=== PATIENT | male | born 1980 | race Two or more races ===

== ENCOUNTER 2022-03-21 09:51 | Outpatient (REF) | payer OTHER, SELFPAY ==
[2022-03-21 10:35] LABS: Hematocrit 34.2 % (42.0-52.0); Hemoglobin 11.6 g/dl (14.0-18.0); Mean Corpuscular HGB Conc 33.9 g/dl (31.0-36.0); Mean Corpuscular Hemoglobin 35.2 pg (27.0-33.0); Mean Corpuscular Volume 103.6 fL (80.0-98.0); Mean Platelet Volume 12.7 fL (9.4-12.4); Platelet Count 418 X10*3/uL (160-400); Red Cell Distribution Width 13.5 % (11.0-16.0); White Blood Count 14.1 X10*3/uL (4.8-10.8)
[2022-03-21 10:44] LABS: INTERNATIONAL NORM RATIO 1.6 (0.9-1.1); Prothrombin Time 18.2 SEC (10.0-13.1)
[2022-03-21 11:16] LABS: Alanine Aminotransferase 58 U/L (0-40); Albumin Level 3.1 g/dL (3.5-5.0); Alkaline Phosphatase 408 U/L (39-117); Aspartate Amino Transferase 173 U/L (5-37); Bilirubin Direct 7.8 mg/dL (0.0-0.5); Bilirubin Total 11.7 mg/dL (0.0-1.0); Total Protein 6.8 g/dL (6.5-8.0)
[2022-03-21 11:20] LABS: HBS Num1 15.71 mIU/mL (0-7.99); HBc Num1 0.09 S/CO (0.00-0.79); HBsAGNum1 0.19 S/CO (0.00-0.99); Hepatitis B Core Antibody Nonreactive (Nonreactive); Hepatitis B Surface Antigen Negative (Negative); ~HepC Num1 0.19 S/CO (0.00-0.79); ~Hepatitis B Surface Antibody REACTIVE (Nonreactive); ~Hepatitis C Antibody Nonreactive (Nonreactive)
== END 2022-03-21 09:52 | disposition home or self-care (01) ==
LOC: HO.LAB 09:51
PROVIDERS: PCP Physician Assistant; Visit Provider Physician Assistant
DX: Z11.3 Encounter for screening for infections with a predominantly sexual mode of transmission (principal); K70.30 Alcoholic cirrhosis of liver without ascites
CPT/HCPCS: 36415; 80076; 85027; 85610; 86704; 86706; 86803; 87340

== ENCOUNTER 2022-04-04 10:47 | Outpatient (REF) | payer OTHER, SELFPAY ==
[2022-04-04 11:19] LABS: Hematocrit 34.5 % (42.0-52.0); Hemoglobin 11.8 g/dl (14.0-18.0); Mean Corpuscular HGB Conc 34.2 g/dl (31.0-36.0); Mean Corpuscular Hemoglobin 35.3 pg (27.0-33.0); Mean Corpuscular Volume 103.3 fL (80.0-98.0); Mean Platelet Volume 11.1 fL (9.4-12.4); Platelet Count 224 X10*3/uL (160-400); Red Blood Count 3.34 X10*6/uL (4.60-5.80); Red Cell Distribution Width 12.6 % (11.0-16.0); White Blood Count 10.6 X10*3/uL (4.8-10.8)
[2022-04-04 11:26] LABS: Ammonia 58 umol/L (13-55)
[2022-04-04 11:30] LABS: INTERNATIONAL NORM RATIO 1.5 (0.9-1.1)
[2022-04-04 11:44] LABS: Alanine Aminotransferase 35 U/L (0-40); Alkaline Phosphatase 418 U/L (39-117); Aspartate Amino Transferase 112 U/L (5-37); Bilirubin Total 5.6 mg/dL (0.0-1.0); Blood Urea Nitrogen 3 mg/dL (9-16); Calcium 8.4 mg/dL (8.4-10.2); Estimated Glomerular Filt Rate > 60; Glucose Fasting 135 mg/dL (60-99); Total Protein 6.5 g/dL (6.5-8.0)
[2022-04-04 12:14] LABS: Anion Gap 21 (12-20); Carbon Dioxide 30 mmol/L (22-29); Chloride 91 mmol/L (96-108); Potassium 2.7 mmol/L (3.3-5.1); Sodium 139 mmol/L (135-145)
== END 2022-04-04 10:48 | disposition home or self-care (01) ==
LOC: HO.LAB 10:47
PROVIDERS: PCP Physician Assistant; Visit Provider Physician Assistant
DX: K70.30 Alcoholic cirrhosis of liver without ascites (principal); E78.00 Pure hypercholesterolemia, unspecified; R11.0 Nausea; R63.4 Abnormal weight loss
CPT/HCPCS: 36415; 80053; 82140; 85027; 85610

== ENCOUNTER 2023-02-23 09:22 | Outpatient (AMB) | payer OTHER, SELFPAY ==
--- NOTE | 2023-02-23 09:26 | MHC.PC.OV ---
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: Present Accompanied by: Mother Allergies No Known Allergies Allergy (Verified 02/23/23 09:28) Tobacco use date assessed: 02/23/23 Dental Screening Dental Screen Date: 02/23/23 Did you have a dental visit in the last 12 months?: Yes Did you have a dental problem in the last 6 months where you did not have access to dental care?: No Was dental information given to patient?: Patient has dentist HPI HPI Comments History of Present Illness Details 42-year-old male past medical history significant for insomnia, generalized anxiety disorder, GERD, gout, hypertension and alcoholic cirrhosis of the liver. Patient of Gustavo Garcia presents today for swollen groin x 2 weeks patient reports he was recently admitted to [facility] and had an indwelling catheter during admission. Patient reports since discharge from hospital and catheter removal he has had penile scrotal swelling. Patient denies severe pain just states it is uncomfortable because it is so swollen. Past history liver cirrhosis and ascites. amonia level at [facility] 175 will repeat.Patient currently on spironolactone 25 mg daily. Patient denies any dysuria, penile discharge, blood in the urine or difficulty voiding. CMP and urinalysis ordered. [facility] Surgical History No pertinent past surgical history Family History Mother No problems noted. Father No problems noted. 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 1. Little interest or pleasure in doing things: not at all 2. Feeling down, depressed, or hopeless: not at all 3. Trouble falling or staying asleep, or sleeping too much: not at all 4. Feeling tired or having little energy: not at all 5. Poor appetite or overeating: not at all 6. Feeling bad about yourself - or that you are a failure or have let yourself or your family down: not at all 7. Trouble concentrating on things, such as reading the newspaper or watching television: not at all 8. Moving or speaking so slowly that other people could have noticed. Or the opposite - being so fidgety or restless that you have been moving around a lot more than usual: not at all 9. Thoughts that you would be better off or of hurting yourself in some way: not at all Total score: 0 Depression Screening Interpretation: Negative Source: Developed by Drs. Carlos Bell, Irene Parisi, Norm Osorio and colleagues, with an educational marco antonio from [employer]. Thrive Questionnaire Date Thrive assessed: 02/23/23 I am a: Patient What is your living situation today?: I have a steady place to live Within the past 12 months, did the food you bought not last and you didn't have the money to get more?: Never true Within the past 12 months, did you worry whether your food would run out before you got money to buy more?: Never true Do you have trouble paying for medicines?: No Do you have trouble getting transportation to medical appointments?: No Do you have trouble paying your heating and electricity bill?: No Do you have trouble taking care of your child, family member or friend?: No Do you have trouble with day-to-day activities such as bathing, preparing meals, shopping, managing finances, etc.?: No Are you currently unemployed and looking for a job?: No Are you interested in more education?: No Currently or been in a relationship where the following occur: no concerns reported AUDIT C Alcohol Use Questionnaire (AUDIT-C) 1. How often do you have a drink containing alcohol?: 2-3 times a week 2. How many drinks containing alcohol do you have on a typical day when you are drinking?: 1 or 2 Total Score: 3 YARA-7 AMB Questionnaire YARA-7 Date YARA - 7 assessed: 02/23/23 Feeling nervous, anxious, or on edge: 1 = Several days Not being able to stop or control worryin = Several days Worrying too much about different things: 1 = Several days Trouble relaxin = Not at all Being so restless that it is hard to sit still: 0 = Not at all Becoming easily annoyed or irritable: 0 = Not at all Feeling afraid as if something awful might happen: 0 = Not at all Total YARA-7 score (0-4 normal; 5-9 mild; 10-14 moderate; 15-21 severe): 3 Source: Developed by Drs. Carlos Bell, Irene Parisi, Norm Osorio and colleagues, with an educational marco antonio from [employer]. Review of Systems Const Denies chills, Denies fatigue, Denies fever(s) and Denies poor appetite Eyes Denies no additional complaints ENT Reports Normal hearing present Card Denies chest pain, Denies syncope, Denies rapid heart rate and Denies dyspnea Resp Denies cough and Denies dyspnea GI Denies change in stool character, Denies constipation, Denies diarrhea, Denies nausea and Denies vomiting Denies dysuria, Denies urinary frequency, Denies urinary urgency and Reports other (penile and scrotal swelling ) Neuro Reports Normal hearing present, Denies confusion and Denies syncope Psych Denies confusion Endo Denies fatigue Physical exam (Primary Care) Vital Signs: Last Vital Signs Pulse 94 02/23/23 09:28 BP 100/72 02/23/23 09:28 Pulse Ox 100 02/23/23 09:28 Oxygen Delivery Method Room Air 02/23/23 09:28 BMI result Body Mass Index 28.5 Tobacco/Smoking Status: Tobacco use Status Tobacco use date assessed 02/23/23 02/23/23 09:32 Patient Tobacco Use Status Former Tobacco user 02/23/23 09:40 e-Cigarette/Vaping Use Never Used 02/23/23 09:38 PHQ-9: PHQ-9 Score PHQ-9: Total score 0 02/23/23 11:53 Depression Screening Interpretation: Negative Thrive Assessment: Date of Thrive Assessment Date Thrive assessed 02/23/23 02/23/23 09:32 Currently or been in a relationship where the following occur: no concerns reported Const General: No confusion Orientation/consciousness: No confusion HENMT Head: Yes normocephalic and Yes atraumatic Eyes Conjunctivae: conjunctivae normal Chest Chest palpation & inspection: normal inspection of the chest Resp Effort & Inspection: normal respiratory effort Auscultation: clear to auscultation bilaterally, no crackles, no rhonchi and no wheezes Cardio Rate: regular rate Rhythm: regular rhythm Heart sounds: S1 normal heart sound present and S2 normal heart sound present GI Inspection: Yes normal to inspection Male General Exam: No ecchymosis, Yes edema diffuse (large amount of diffuse penile and scrotal swelling ) and No erythema Meatus: no meatla discharge, No Blood at meatus present and No Erythema at meatus Neuro General: No confusion Cranial nerves: Yes Normal hearing present Extrem General: No edema Assessment and Plan Assessment & Plan (1) Alcoholic cirrhosis of liver: Code(s): K70.30 - Alcoholic cirrhosis of liver without ascites Qualifiers: Ascites presence: without ascites Qualified Code(s): K70.30 - Alcoholic cirrhosis of liver without ascites Plan: Ammonia repeated and decreased to 118 from 175. (2) Penile swelling: Code(s): N48.89 - Other specified disorders of penis Plan: Given patient experiencing diffuse scrotal and penile swelling, denies pain just uncomfortable from amount of swelling possibly related to history of alcoholic liver cirrhosis and ascites. Patient advised to continue on spironolactone 25 mg daily and if kidney function within normal limits will start patient on short course low dose (given soft B/p) Lasix 10mg daily x 5 days to help improve swelling. Urinalysis ordered just to exclude any urinary tract infection or blood in the urine. Patient advised to wear supportive underwear and can elevate scrotum on a towel to decrease swelling. Patient requesting referral to urologist, referral entered. (3) Scrotal swelling: Code(s): N50.89 - Other specified disorders of the male genital organs Plan Keep scheduled HDF in March. Orders: Orders Comprehensive Met. Panel Today K70.30 - Alcoholic cirrhosis of liver without ascites UA CC w/rflx Micro + Cult Today K70.30 - Alcoholic cirrhosis of liver without ascites, N48.89 - Other specified disorders of penis, N50.89 - Other specified disorders of the male genital organs Ammonia Today K74.60 - Unspecified cirrhosis of liver Referrals Urology Referral N48.89 - Other specified disorders of penis, N50.89 - Other specified disorders of the male genital organs Medications: New furosemide (Lasix) 10 mg (1/2 x 20 mg) PO DAILY 3 tabs 0RF N48.89 - Other specified disorders of penis, N50.89 - Other specified disorders of the male genital organs Refilled prochlorperazine maleate 5 mg PO DAILY 90 tabs 0RF 90 days K21.9 - Gastro-esophageal reflux disease without esophagitis colchicine (gout) 0.6 mg PO DAILY 15 tabs 1RF 15 days [id number].0710 - Idiopathic chronic gout, right ankle and foot, without tophus (tophi) Coding Level of Care Code Est Pt Level 3 (53022) Diagnoses Alcoholic cirrhosis of liver without ascites K70.30 Ascites presence: without ascites Penile swelling N48.89 Scrotal swelling N50.89
[2023-02-23 09:28] VITALS: BP 100/72; PULSE 94; O2SAT 100; BMI 28.5
== END 2023-02-23 10:27 | disposition home or self-care (01) ==
PROVIDERS: PCP Physician Assistant; Visit Provider Nurse Practitioner Family
DX: K70.30 Alcoholic cirrhosis of liver without ascites (principal); N48.89 Other specified disorders of penis; N50.89 Other specified disorders of the male genital organs
CPT/HCPCS: 99213

== ENCOUNTER 2023-02-23 10:19 | Outpatient (REF) | payer OTHER, SELFPAY ==
[2023-02-23 11:05] LABS: Ammonia 118 umol/L (13-55)
[2023-02-23 12:06] LABS: Alanine Aminotransferase 25 U/L (0-40); Albumin Level 2.7 g/dL (3.5-5.0); Alkaline Phosphatase 139 U/L (39-117); Anion Gap 10 (12-20); Aspartate Amino Transferase 47 U/L (5-37); Bilirubin Total 12.1 mg/dL (0.0-1.0); Blood Urea Nitrogen 10 mg/dL (9-16); Calcium 8.5 mg/dL (8.4-10.2); Carbon Dioxide 18 mmol/L (22-29); Chloride 113 mmol/L (96-108); Estimated Glomerular Filt Rate > 60; Glucose Random 140 mg/dL (60-115); Potassium 3.3 mmol/L (3.3-5.1); Sodium 138 mmol/L (135-145); Total Protein 6.1 g/dL (6.5-8.0)
== END 2023-02-23 10:20 | disposition home or self-care (01) ==
LOC: HO.LAB 10:19
PROVIDERS: PCP Physician Assistant; Visit Provider Nurse Practitioner Family
DX: K70.30 Alcoholic cirrhosis of liver without ascites (principal)
CPT/HCPCS: 36415; 80053; 82140

== ENCOUNTER 2023-02-24 12:16 | Outpatient (REF) | payer OTHER, SELFPAY ==
[2023-02-24 12:22] LABS: Appearance Urine Clear; Color Urine Dark Yellow; Glucose Urine UA Negative (Negative); Leukocyte Esterase Urine Moderate (2+) (Negative); Nitrite Urine Negative (Negative); PH 6.5 (5.0-9.0); Specific Gravity - Urine 1.015 (1.005-1.025); UMIC TRIGGER UACC YES; Urine Blood Negative (Negative); Urine Ketones Negative (Negative); Urine Protein Trace mg/dL (Neg-Trace)
[2023-02-24 12:25] LABS: Bacteria Urine Trace (None Seen); Hyaline Casts Urine 0-2 /LPF (0-2); RBC Urine 0-2 /HPF (0-2); UACC Culture Trigger YES; WBC Urine 21-50 /HPF (0-5)
== END 2023-02-24 12:17 | disposition home or self-care (01) ==
LOC: HO.LAB 12:16
PROVIDERS: Visit Provider Nurse Practitioner Family
DX: K73.0 Chronic persistent hepatitis, not elsewhere classified (principal); N50.89 Other specified disorders of the male genital organs; N48.89 Other specified disorders of penis
CPT/HCPCS: 81001; 87086

== ENCOUNTER 2023-03-02 12:53 | Outpatient (AMB) | payer OTHER, SELFPAY ==
--- NOTE | 2023-03-02 12:57 | A.OFFPC_ITS ---
Vital Signs 3 03/02/23 12:58 Height 5 ft 8 in Weight 192 lb 8 oz BMI 29.3 BP 100/60 Blood Pressure Location Lt brachial Position Sitting Respiration 16 Pulse 82 Pulse Source Pulse Oximeter Pulse Oximetry (%) 99 Oxygen Delivery Method Room Air Intake Visit Reasons: abdominal and groin swelling Intake Note: Patient is here to follow-up after a visit the emergency department at [facility] on 02/24/23 for Scrotal swelling. Pt was evaluated for hypokalemia and UTI. 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 Language: Korean Accompanied by: Spouse Allergies No Known Allergies Allergy (Verified 03/02/23 13:15) Medication List - Last Reconciled 03/02/23 by John Garcia PA-C folic acid 1 mg PO DAILY furosemide (Lasix) 10 mg (1/2 x 20 mg) PO DAILY multivitamin 1 tab PO DAILY 90 days pantoprazole 40 mg PO DAILY prochlorperazine maleate 5 mg PO DAILY 90 days spironolactone 25 mg PO DAILY thiamine HCl (vitamin B1) 100 mg PO DAILY 90 days Tobacco use date assessed: 02/23/23 Dental Screening Dental Screen Date: 03/02/23 Did you have a dental visit in the last 12 months?: Yes Did you have a dental problem in the last 6 months where you did not have access to dental care?: No Was dental information given to patient?: Patient has dentist HPI abdominal and groin swelling 2 HPI0 Details Pt is a 42 y/o M here today for a ER follow up .Patient has a past medical history significant for alcoholic cirrhosis of liver with Ascites. he has scrotal swelling and recently placed on Lasix. he continues to have scrotal swelling which prompted his ER evaluation, urinalysis significant for UTI was started on Keflex. Was given IV Lasix 40 mg and was also found to be hypokalemic. Will send for nonfasting labs to evaluate potassium, liver. [facility] Surgical History No pertinent past surgical history Family History Mother No problems noted. Father No problems noted. 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 Carlos eBll, Irene Parisi, Norm Osorio and colleagues, with an educational marco antonio from [employer]. Review of Systems Const Denies headache(s) Eyes Denies loss of vision ENT Denies vertigo, Denies dizziness, Denies headache(s) and Denies sore throat Card Denies chest pain, Denies leg edema and Denies lightheadedness Resp Denies cough, Denies hemoptysis and Denies wheezing GI Denies abdominal pain, Denies melena, Denies constipation, Denies diarrhea and Denies vomiting Denies dysuria, Denies urinary frequency and Denies urinary urgency Musc Denies arthralgias, Denies joint swelling, Denies numbness and Denies tingling Neuro Denies Abnormal speech present, Denies behavioral changes, Denies vertigo, Denies dizziness, Denies headache(s), Denies loss of vision, Denies memory loss, Denies numbness and Denies tingling Psych Denies anxiety, Denies behavioral changes, Denies depression, Denies memory loss and Denies panic attacks Chris/Lymph Denies easy bleeding and Denies easy bruising Aller/Immun Denies wheezing Physical exam (Primary Care) Vital Signs: Last Vital Signs Pulse 82 03/02/23 12:58 Resp 16 03/02/23 12:58 BP 100/60 03/02/23 12:58 Pulse Ox 99 03/02/23 12:58 Oxygen Delivery Method Room Air 03/02/23 12:58 BMI result Body Mass Index 29.3 Tobacco/Smoking Status: Tobacco use Status Tobacco use date assessed 02/23/23 03/02/23 12:57 Patient Tobacco Use Status Former Tobacco user 03/02/23 12:57 e-Cigarette/Vaping Use Never Used 03/02/23 12:57 Thrive Assessment: Date of Thrive Assessment Date Thrive assessed 02/23/23 03/02/23 12:57 Const General: healthy appearing, no acute distress, alert and awake Nutritional Appearance: well nourished Orientation/consciousness: oriented to person, oriented to place and oriented to time HENMT Ears: TM's normal bilaterally General nose exam: Normal nasal mucous membranes and turbinates present Eyes Conjunctivae: conjunctivae normal Sclerae: sclerae normal Pupils: Equal, round and reactive pupils present Neck Neck: Yes no lymphadenopathy and Yes no JVD Thyroid: Thyroid normal Carotids: no bruits Resp Effort & Inspection: normal respiratory effort and not tachypneic Auscultation: no crackles, no rales, no rhonchi and no wheezes Cardio Rate: regular rate Rhythm: regular rhythm Heart sounds: no murmurs and normal S1 and S2 GI Other: LARGE ABDOMINAL GIRTH Palpation (GI): Soft to palpation, nontender, Hepatomegaly present, no splenomegaly and Ascites present Auscultation: normal bowel sounds Other: Skin General skin exam: no rashes or lesions noted and dry skin Neuro General: oriented to person, oriented to place and oriented to time Cranial nerves: Yes Equal, round and reactive pupils present Speech: No Abnormal speech present Gait exam (Neuro): Normal gait present Motor exam (neuro): no tremor noted Extrem Right upper extremity: full ROM Left upper extremity: full ROM Right lower extremity: full ROM; no edema Left lower extremity: full ROM; no edema Psych Mental Status: mental status grossly normal Speech and movement: Normal speech and movement present Affect: normal affect Attitude: cooperative Thought process: Normal thought process present Results AMB Hemoglobin A1c 2 AMB Hemoglobin A1c 4.2 % Last Edit by SALAZAR Paiz on 03/02/23 13:33 Results Reviewed Results Reviewed: Laboratory Last Values Hgb A1c (Clinic) 4.2 % (4.0-6.0) 03/02/23 12:57 Assessment and Plan Assessment & Plan (1) Alcoholic cirrhosis of liver: Code(s): K70.30 - Alcoholic cirrhosis of liver without ascites Qualifiers: Ascites presence: without ascites Qualified Code(s): K70.30 - Alcoholic cirrhosis of liver without ascites Plan: Patient has quit drinking for the last month and half. He did spend a few days at the medical ICU at [facility] secondary to liver failure. Has ascites on physical exam today. Also has severe scrotal edema is secondary to his liver cirrhosis ascites. Increase his Lasix to 40 mg b.i.d. along with spironolactone 25 mg. Will check electrolytes and liver panel. Will refer to gastroenterology for possible need for therapeutic paracentesis (2) Screening for diabetes mellitus (DM): Code(s): Z13.1 - Encounter for screening for diabetes mellitus (3) Scrotal swelling: Code(s): N50.89 - Other specified disorders of the male genital organs Plan: Please refer to physical exam section (4) Hypokalemia: Code(s): E87.6 - Hypokalemia Orders: Orders 2 AMB Hemoglobin A1c Today Z13.1 - Encounter for screening for diabetes mellitus Liver Panel Today K70.30 - Alcoholic cirrhosis of liver without ascites Basic Metabolic Panel Today K70.30 - Alcoholic cirrhosis of liver without ascites Prothrombin [id number] Today K70.30 - Alcoholic cirrhosis of liver without ascites Referrals 2 Gastroenterology Referral K70.30 - Alcoholic cirrhosis of liver without ascites Medications: New 2 furosemide (Lasix) 40 mg PO BID 14 days 28 tabs 0RF K70.30 - Alcoholic cirrhosis of liver without ascites Coding Level of Care Code Est Pt Level 3 (07679) Diagnoses Alcoholic cirrhosis of liver without ascites K70.30 Ascites presence: without ascites Screening for diabetes mellitus (DM) Z13.1 Scrotal swelling N50.89 Hypokalemia E87.6
[2023-03-02 12:58] VITALS: BP 100/60; PULSE 82; RESP 16; O2SAT 99; BMI 29.3
== END 2023-03-02 14:27 | disposition home or self-care (01) ==
PROVIDERS: PCP Physician Assistant; Visit Provider Physician Assistant
DX: K70.30 Alcoholic cirrhosis of liver without ascites (principal); Z13.1 Encounter for screening for diabetes mellitus; N50.89 Other specified disorders of the male genital organs; E87.6 Hypokalemia
CPT/HCPCS: 83036; 99213

== ENCOUNTER 2023-03-02 13:45 | Outpatient (REF) | payer OTHER, SELFPAY ==
[2023-03-02 15:15] LABS: Alanine Aminotransferase 32 U/L (0-40); Albumin Level 2.7 g/dL (3.5-5.0); Alkaline Phosphatase 200 U/L (39-117); Anion Gap 9 (12-20); Aspartate Amino Transferase 67 U/L (5-37); Bilirubin Direct 2.3 mg/dL (0.0-0.5); Bilirubin Total 5.9 mg/dL (0.0-1.0); Blood Urea Nitrogen 5 mg/dL (9-16); Calcium 8.6 mg/dL (8.4-10.2); Carbon Dioxide 21 mmol/L (22-29); Chloride 112 mmol/L (96-108); Estimated Glomerular Filt Rate > 60; Glucose Random 108 mg/dL (60-115); Potassium 3.5 mmol/L (3.3-5.1); Sodium 138 mmol/L (135-145); Total Protein 6.4 g/dL (6.5-8.0)
[2023-03-06 23:02] LABS: Prothrombin 20210A NEGATIVE
== END 2023-03-02 13:46 | disposition home or self-care (01) ==
LOC: HO.LAB 13:45
PROVIDERS: PCP Physician Assistant; Visit Provider Physician Assistant
DX: K70.30 Alcoholic cirrhosis of liver without ascites (principal)
CPT/HCPCS: 36415; 80048; 80076; 81240

== ENCOUNTER 2023-03-09 12:55 | Outpatient (AMB) | payer OTHER, SELFPAY ==
[2023-03-09 13:01] VITALS: BP 98/58; PULSE 78; RESP 17; O2SAT 99; BMI 26.7
--- NOTE | 2023-03-09 13:01 | A.OFFPC_ITS ---
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 Accompanied by: Self / Same As Patient Allergies No Known Allergies Allergy (Verified 03/09/23 13:22) Medication List - Last Reconciled 03/09/23 by John Garcia PA-C folic acid 1 mg PO DAILY furosemide (Lasix) 40 mg PO BID 14 days multivitamin 1 tab PO DAILY 90 days pantoprazole 40 mg PO DAILY potassium chloride ER (Klor-Con M) 10 mEq PO DAILY 14 days prochlorperazine maleate 5 mg PO DAILY 90 days spironolactone 25 mg PO DAILY thiamine HCl (vitamin B1) 100 mg PO DAILY 90 days Tobacco use date assessed: 02/23/23 Dental Screening Dental Screen Date: 03/09/23 Did you have a dental visit in the last 12 months?: No Did you have a dental problem in the last 6 months where you did not have access to dental care?: No Was dental information given to patient?: Patient has dentist HPI 1 week f/u HPI Details Patient is a 42-year-old male here today for one-week follow-up. 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 [facility] for 3 days and underwent paracentesis bing 3.5 L from his abdomen. Also had pleural effusion and removed 1 L of fluid from his lungs. Also has been started on aldactone 100mg at last visit we increased his diuretic dose and now has lost significant amount of weight. He is much less abdominal bloating and lower extremity edema. Has been scheduled appointment with [place] [facility] in early March 2023. [facility] Surgical History No pertinent past surgical history Family History Mother No problems noted. Father No problems noted. 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 Carlso Bell, Irene Parisi, Norm Osorio and colleagues, with an educational marco antonio from [employer]. Review of Systems Const Denies headache(s) Eyes Denies loss of vision ENT Denies vertigo, Denies dizziness, Denies headache(s) and Denies sore throat Card Denies chest pain, Denies leg edema and Denies lightheadedness Resp Denies cough, Denies hemoptysis and Denies wheezing GI Denies abdominal pain, Denies melena, Denies constipation, Denies diarrhea and Denies vomiting Denies dysuria, Denies urinary frequency and Denies urinary urgency Musc Denies arthralgias, Denies joint swelling, Denies numbness and Denies tingling Neuro Denies Abnormal speech present, Denies behavioral changes, Denies vertigo, Denies dizziness, Denies headache(s), Denies loss of vision, Denies memory loss, Denies numbness and Denies tingling Psych Denies anxiety, Denies behavioral changes, Denies depression, Denies memory loss and Denies panic attacks Chris/Lymph Denies easy bleeding and Denies easy bruising Aller/Immun Denies wheezing Physical exam (Primary Care) Vital Signs: Last Vital Signs Pulse 78 03/09/23 13:01 Resp 17 03/09/23 13:01 BP 98/58 L 03/09/23 13:01 Pulse Ox 99 03/09/23 13:01 Oxygen Delivery Method Room Air 03/09/23 13:01 BMI result Body Mass Index 26.7 Tobacco/Smoking Status: Tobacco use Status Tobacco use date assessed 02/23/23 03/09/23 13:07 Patient Tobacco Use Status Former Tobacco user 03/09/23 13:07 e-Cigarette/Vaping Use Never Used 03/09/23 13:07 Thrive Assessment: Date of Thrive Assessment Date Thrive assessed 02/23/23 03/09/23 13:07 Const General: healthy appearing, no acute distress, alert and awake Nutritional Appearance: well nourished Orientation/consciousness: oriented to person, oriented to place and oriented to time HENMT Ears: TM's normal bilaterally General nose exam: Normal nasal mucous membranes and turbinates present Eyes Conjunctivae: conjunctivae normal Sclerae: sclerae normal Pupils: Equal, round and reactive pupils present Neck Neck: Yes no lymphadenopathy and Yes no JVD Thyroid: Thyroid normal Carotids: no bruits Resp Effort & Inspection: normal respiratory effort and not tachypneic Auscultation: no crackles, no rales, no rhonchi and no wheezes Cardio Rate: regular rate Rhythm: regular rhythm Heart sounds: no murmurs and normal S1 and S2 GI Other: Abdomen minimally distended, Much improved abdominal ascites Inspection: Yes Abdominal wall edema Palpation (GI): Soft to palpation, nontender, no hepatomegaly and no splenomegaly Auscultation: normal bowel sounds Skin General skin exam: no rashes or lesions noted and dry skin Neuro General: oriented to person, oriented to place and oriented to time Cranial nerves: Yes Equal, round and reactive pupils present Speech: No Abnormal speech present Gait exam (Neuro): Normal gait present Motor exam (neuro): no tremor noted Extrem Other: 2+ PITTING EDEMA TO THE LEVEL OF DISTAL YEN BILATERAL LOWER EXTREMITIES Right upper extremity: full ROM Left upper extremity: full ROM Right lower extremity: full ROM and edema Left lower extremity: full ROM and edema Psych Mental Status: mental status grossly normal Speech and movement: Normal speech and movement present Affect: normal affect Attitude: cooperative Thought process: Normal thought process present Assessment and Plan Assessment & Plan (1) Alcoholic cirrhosis of liver: Code(s): K70.30 - Alcoholic cirrhosis of liver without ascites Qualifiers: Ascites presence: without ascites Qualified Code(s): K70.30 - Alcoholic cirrhosis of liver without ascites Plan: Patient has quit drinking for the last month and half. Recently admitted to [facility] and underwent paracentesis removing 3 in a 0.5 L fluid. His weight is now down 25 lb.. He reports his usual weight is 168-170 lb He has been started on higher dose of Aldactone 100 mg. Has upcoming appointment with GI here in [place]. For now will continue 40 mg Lasix b.i.d. for the next 2 weeks. Advised on fluid restrictions. Will discontinue potassium supplementation as he has been started on higher dose of Aldactone. Orders: Orders Basic Metabolic Panel Today K70.30 - Alcoholic cirrhosis of liver without ascites Liver Panel Today K70.30 - Alcoholic cirrhosis of liver without ascites Medications: New spironolactone 100 mg PO DAILY 30 days 30 tabs 1RF K70.30 - Alcoholic cirrhosis of liver without ascites Discontinued potassium chloride ER (Jennifer Olmstead) Discontinued Reason: Doctor's Order 10 mEq PO DAILY 14 days 14 tabs 0RF E87.6 - Hypokalemia Coding Level of Care Code Est Pt Level 4 (08557) Diagnoses Alcoholic cirrhosis of liver without ascites K70.30 Ascites presence: without ascites
== END 2023-03-09 14:26 | disposition home or self-care (01) ==
PROVIDERS: PCP Physician Assistant; Visit Provider Physician Assistant
DX: K70.30 Alcoholic cirrhosis of liver without ascites (principal)
CPT/HCPCS: 99214

== ENCOUNTER 2023-03-11 14:23 | Outpatient (AMB) | payer OTHER, SELFPAY ==
--- NOTE | 2023-03-11 14:31 | A.OFFVIS_ITS ---
Intake Intake Visit Reasons: Swollen scrotum Intake Note: NEW Patient presents today to established treatment for Swollen Scrotum: Meds- None Allergies to Antibiotic- No Known Allergies Blood Thinner- None Unable to void Patient Symptoms: Pain in the scrotum Ekg Technician Required: No Accompanied by: Self / Same As Patient Allergies No Known Allergies Allergy (Verified 03/25/23 11:47) Medication List - Last Reconciled 03/11/23 by Dinah Clement MD folic acid 1 mg PO DAILY furosemide (Lasix) 40 mg PO BID 14 days multivitamin 1 tab PO DAILY 90 days pantoprazole 40 mg PO DAILY prochlorperazine maleate 5 mg PO DAILY 90 days spironolactone 100 mg PO DAILY 30 days spironolactone 40 mg PO DAILY thiamine HCl (vitamin B1) 100 mg PO DAILY 90 days HPI HPI Comments History of Present Illness Details Erik is a 42-year-old male who presents today to the office to establish as a new patient for an evaluation of swollen scrotum.? 03/11/2023? He presents today for an evaluation of swollen scrotum. Patient states that he is not having pain in the scrotum currently. He was seen in hospital on 02/01/2023, and he had a Dozier catheter placed during that time. Patient states that he has a liver disease associated with ascites. He states that recently fluid was removed from his abdomen. He states that the swelling in the scrotum has been improved at this time. Review of chart- US abd paracentesis 11/11/22 I reviewed the urine culture results from 02/24/2023 which came back 10,000 to 50,000 cfu/ml mixed bacterial savana characteristic of urogenital contamination. He did not give urine specimen today in the office. Evaluation today--bladder scan PVR: 137 mL. Examination: scrotum and penis noted edema, but I was able to palpate both the testicles. Plan: Scrotal swelling likely secondary to the ascites. US of the scrotum. Follow-up in 8 weeks. FORMERLY [facility] Surgical History No pertinent past surgical history Family History Mother No problems noted. Father No problems noted. 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 needs: No Hearing needs: No Vision needs: No Review of Systems Const All systems reviewed & are unremarkable except as noted in HPI and below Reports no additional complaints Eyes Reports no additional complaints ENT Reports no additional complaints Card Denies dyspnea Resp Denies cough and Denies dyspnea GI Reports no additional complaints Musc Reports no additional complaints Skin/Breast Denies rash and Denies unusual bruising Neuro Reports no additional complaints Psych Reports no additional complaints Endo Reports no additional complaints Chris/Lymph Reports no additional complaints Aller/Immun Reports no additional complaints Physical Exam Const General: healthy appearing, no acute distress and well developed Orientation/consciousness: patient oriented x3 HEENT Head: Yes normocephalic and Yes atraumatic Eyes Conjunctivae: conjunctivae normal Neck Neck: Yes normal visual inspection Chest Chest palpation & inspection: normal inspection of the chest Resp Effort & Inspection: normal respiratory effort Cardio Rate: regular rate GI Inspection: Yes normal to inspection Palpation (GI): Soft to palpation Other: scrotum and penis noted edema, but I was able to palpate both the testicles. Skin General skin exam: no rashes or lesions noted Neuro General: patient oriented x3 Extrem General: No pedal edema Psych Appearance: grossly normal Affect: normal affect Results Reviewed Results Reviewed: Ordered:? Urine Culture? Procedure?Result?Verified?Site ? Urine Culture? Final?02/25/23-1325 ? Report Result?10,000 to 50,000 cfu/ml ? Mixed bacterial savana characteristic of ? urogenital contamination. Assessment & Plan Assessment & Plan (1) Scrotal swelling: Code(s): N50.89 - Other specified disorders of the male genital organs (2) Scrotal edema: Code(s): N50.89 - Other specified disorders of the male genital organs (3) Ascites: Code(s): R18.8 - Other ascites (4) Penile swelling: Code(s): N48.89 - Other specified disorders of penis Plan US of the scrotum was ordered.? Follow-up in 8 weeks. Orders: Orders US scrotum 03/11/23 N50.89 - Other specified disorders of the male genital organs, R18.8 - Other ascites Patient Instructions: The patient had an opportunity to ask questions regarding treatment plan. All questions were answered. Imaging, Laboratory studies and physical exam results were discussed and reviewed in detail. No major barriers to understanding were identified. The patient expressed understanding and agreement with the above treatment plan.? ? ? The patient is aware they should contact our office by phone for worsening of their current condition or the appearance of new symptoms. Compliance is encouraged with any medications and followup testing that is ordered.? ? ? It is a privilege to be allowed the opportunity to participate in the urologic care of your patient. If you have any questions or concerns regarding treatment for the above conditions please do not hesitate to contact me. The office telephone contact is [phone].? ? ? This note is constructed in part using voice recognition software. While every effort has been made to ensure accuracy dispatch machine runner errors may have been included.? ? ? Yours sincerely,? ? ? Dinah Clement MD? Coding Level of Care Code New Pt Level 4 (43909) Diagnoses Scrotal swelling N50.89 Scrotal edema N50.89 Ascites R18.8 Penile swelling N48.89
== END 2023-03-11 15:11 | disposition home or self-care (01) ==
PROVIDERS: PCP Physician Assistant; Visit Provider Urology
DX: N50.89 Other specified disorders of the male genital organs (principal); R18.8 Other ascites; N48.89 Other specified disorders of penis
CPT/HCPCS: 99204

== ENCOUNTER → 2023-03-11 14:23 | Outpatient (BNVA) | payer OTHER, SELFPAY | PROVIDERS: PCP Physician Assistant; Visit Provider Urology ==

== ENCOUNTER 2023-03-20 13:10 | Outpatient (AMB) | payer OTHER, SELFPAY ==
[2023-03-20 13:18] VITALS: BP 112/67; PULSE 83; O2SAT 100; BMI 26.5
--- NOTE | 2023-03-20 13:18 | MHC.OFFVIS ---
Intake Vital Signs 03/20/23 13:18 Height 5 ft 8 in Weight 174 lb 9.698 oz BMI 26.5 BP 112/67 Blood Pressure Location Rt brachial Position Sitting Pulse 83 Pulse Source Pulse Oximeter Pulse Oximetry (%) 100 Oxygen Delivery Method Room Air Intake Visit Reasons: cirrhosis with ascites and scrotal edema Intake Note: Pt presents to the office today for cirrhosis with ascites and scrotal edema. Pt states he is feeling better. Pt denies any N/V/D. Allergies No Known Allergies Allergy (Verified 03/20/23 13:20) HPI HPI Comments History of Present Illness Details 42 y.o M with etOH disorder who is presenting to establish care for decompensated cirrhosis. Reports getting diagnosed around 2-3 years ago when he went to [facility] ER for etOH intoxication and N/V and was told this is from etOH use. However at that time, pt continued to drink etOH and eventually decompensated with ascites less than a year later. He has since had multiple ER visits for ascites and therapeutic taps. He also reports having an EGD a few months ago but does not remember why it was done or what it showed- does not report any overt bleeding however. Pt now reports abstinence from etOH x2 months (mid Jan 2023) previously used to drink a pint of hard liquor daily x 15-20 years which got even worse after he from the mother of his kids almost 5 years ago. Hx of DUI almost 17-18 years ago in [place]. No rehab admissions. Currently does not hold a driving license in [place] but states that due to an issue with his documentation ( certificate). Does not report IVDU. Hep serologies negative from last year. Pt also used to take NSAIDs on a regular basis almost 2-3 times a week but doesnt take it anymore. Lives with his girlfriend. Has 2 children who live with their mother in [place]. They are aware of his liver condition and visited him during his hospitalisation as well. No fam hx of liver disease in first degree relatives. Most recent para was 03/06: 3L removed as para and 1 L thora. Dry weight 165#. Current weight is 174# Most recent US was in October 2022 ([facility]) no focal lesion. Slow flow detected in PV which was followed up with CT which showed patent PV. Currently on: Spironolactone 100 Furosemide 40 BID Multivitamins PFSH Surgical History No pertinent past surgical history Family History Mother No problems noted. Father No problems noted. Social History Housing: Apartment Alcohol intake: former Patient Tobacco Use Status: Former Tobacco user e-Cigarette/Vaping Use: Never Used Second Hand Smoke Exposure: No Substance Use Type: Marijuana service: No Current occupational status: employed Current occupation: [employer] Cognitive needs: No Hearing needs: No Vision needs: No Review of Systems Const All systems reviewed & are unremarkable except as noted in HPI and below Physical Exam Vital Signs: Last Vital Signs Pulse 83 03/20/23 13:18 BP 112/67 03/20/23 13:18 Pulse Ox 100 03/20/23 13:18 Oxygen Delivery Method Room Air 03/20/23 13:18 BMI result Body Mass Index 26.5 Gen Appear: NAD, undernourished HEENT: No scleral icterus, severe bitemporal wasting noted Chest: Diminished sounds at bases CVS: Regular S1/S2 no murmurs Abd: soft, nontender, distended, shifting dullness to percussion, bowel sounds active Ext: +3 tender pitting edema peripherally Neuro: A/Ox3, no asterixis Derm: Spider angioma and palmar erythema noted Assessment & Plan Assessment & Plan (1) Decompensation of cirrhosis of liver: Code(s): K72.90 - Hepatic failure, unspecified without coma; K74.60 - Unspecified cirrhosis of liver (2) Ascites: Code(s): R18.8 - Other ascites (3) Sarcopenia: Code(s): M62.84 - Sarcopenia Plan Decompensated etOH related cirrhosis - ascites - hepatic hydrothorax Majority of the visit was spent reviewing the natural hx and progression of liver disease. Pt was congratulated on maintaining sobriety x 2 months and encouraged to continue strict abstinence. We also discussed potential complication of portal HTN for which he will need close monitoring and care including large volume ascites, varices, HE, HCC. We also reviewed that depending on the degree of recuperation of liver function he may need a referral to liver transplant center as well. Plan: - Obtain updated MELD labs - Continue lasix 80mg once daily (pt was advised to take this as once daily as opposed to 40 BID as he frequently skips the evening dose) - INCREASE spironolactone to 150mg once daily - Salt restriction to 2g/day - Recheck BMP in 2 weeks - Will defer tap for now as pt able to manage ascites and increasing diuretics, but he was advised to call our office if he gains 5lbs/week despite this - US abd for HCC screening - Obtain records from [facility] including EGD - Cont etOH abstinence, reassessment of underlying liver function will be performed at 6m sobriety jen Follow up in 4 weeks Orders: Orders Prothrombin Time INR Today K70.30 - Alcoholic cirrhosis of liver without ascites Complete Blood Count no Diff Today K70.30 - Alcoholic cirrhosis of liver without ascites US abdomen complete Today K70.30 - Alcoholic cirrhosis of liver without ascites Basic Metabolic Panel Today R18.8 - Other ascites Medications: Changed From spironolactone 100 mg PO DAILY 30 days 30 tabs 1RF K70.30 - Alcoholic cirrhosis of liver without ascites To spironolactone 150 mg (1.5 x 100 mg) PO DAILY 90 days 135 tabs 1RF K70.30 - Alcoholic cirrhosis of liver without ascites Patient Instructions: 1. Blood work today (ordered by me and PCP) 2. INCREASE spironolactone to 150mg once daily 3. Continue lasix 80mg once daily 4. Watch salt intake, no more than 2g of sodium in a day 5. Repeat blood work in 2 weeks to monitor effect of water pills. 6. Monitor daily weight. If weight increases by 5 pounds in a week, please call our office 5. Ultrasound of the liver has been ordered. Radiology dept will call you for an appointment Follow up in 4 weeks. Coding Level of Care Code New Pt Level 5 (44433) Diagnoses Decompensation of cirrhosis of liver K72.90; K74.60 Ascites R18.8 Sarcopenia M62.84
== END 2023-03-20 13:52 | disposition home or self-care (01) ==
PROVIDERS: PCP Physician Assistant; Visit Provider Internal Medicine
DX: K72.90 Hepatic failure, unspecified without coma (principal); K74.60 Unspecified cirrhosis of liver; R18.8 Other ascites; M62.84 Sarcopenia
CPT/HCPCS: 99204

== ENCOUNTER 2023-03-20 13:10 | Outpatient (REF) | payer OTHER, SELFPAY | END 2023-03-20 13:11 | disposition home or self-care (01) | LOC: HO.LAB 13:10 | PROVIDERS: Absent Provider Physician Assistant; PCP Physician Assistant; Visit Provider Internal Medicine | DX: K72.90 Hepatic failure, unspecified without coma (principal); K70.30 Alcoholic cirrhosis of liver without ascites; R18.8 Other ascites; M62.84 Sarcopenia | CPT/HCPCS: 36415; 80048; 80076; 85027; 85610 ==

== ENCOUNTER 2023-03-25 11:12 | Outpatient (AMB) | payer OTHER, SELFPAY ==
--- NOTE | 2023-03-25 11:27 | MHC.PC.OV ---
Vital Signs 03/25/23 11:28 Height 5 ft 8 in Weight 167 lb BMI 25.4 BP 102/62 Blood Pressure Location Lt brachial Position Sitting Respiration 17 Pulse 85 Pulse Source Pulse Oximeter Pulse Oximetry (%) 98 Oxygen Delivery Method Room Air Intake Visit Reasons: [facility] discharge f/u Program Director Group Work Required: No Accompanied by: Self / Same As Patient Allergies No Known Allergies Allergy (Verified 03/25/23 11:47) Medication List - Last Reconciled 03/25/23 by John Garcia PA-C folic acid 1 mg PO DAILY furosemide (Lasix) 20 mg PO DAILY 90 days multivitamin 1 tab PO DAILY 90 days pantoprazole 40 mg PO DAILY potassium chloride ER (Klor-Con) 10 mEq PO DAILY 15 days prochlorperazine maleate 5 mg PO DAILY 90 days spironolactone 150 mg (1.5 x 100 mg) PO DAILY 90 days thiamine HCl (vitamin B1) 100 mg PO DAILY 90 days Tobacco use date assessed: 02/23/23 Dental Screening Dental Screen Date: 03/25/23 Did you have a dental visit in the last 12 months?: No Did you have a dental problem in the last 6 months where you did not have access to dental care?: No Was dental information given to patient?: Patient has dentist HPI [facility] discharge f/u HPI Details Patient is a 42-year-old male here today for one-week follow-up. 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 Has followed up with Gastroenterology and is due for lab testing and ultrasound of his abdomen. We have increased his spironolactone to 150 mg. Of note most recent labs showing low potassium. Will decrease his furosemide to 40 mg daily. Has lost more weight since last office visit though still has 1+ bilateral pedal edema to mid esparza. He reports he is feeling much better and last heavy. He continues to abstain from alcohol use and reports it has been nearly 2 and half months since his last drink of alcohol. He denies any cravings for alcohol and declines my offers to start naltrexone [facility] Surgical History No pertinent past surgical history Family History Mother No problems noted. Father No problems noted. 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 Carlos Bell, Irene Parisi, Norm Osorio and colleagues, with an educational marco antonio from [employer]. Review of Systems Const Denies headache(s) Eyes Denies loss of vision ENT Denies vertigo, Denies dizziness, Denies headache(s) and Denies sore throat Card Denies chest pain, Denies leg edema and Denies lightheadedness Resp Denies cough, Denies hemoptysis and Denies wheezing GI Denies abdominal pain, Denies melena, Denies constipation, Denies diarrhea and Denies vomiting Denies dysuria, Denies urinary frequency and Denies urinary urgency Musc Denies arthralgias, Denies joint swelling, Denies numbness and Denies tingling Neuro Denies Abnormal speech present, Denies behavioral changes, Denies vertigo, Denies dizziness, Denies headache(s), Denies loss of vision, Denies memory loss, Denies numbness and Denies tingling Psych Denies anxiety, Denies behavioral changes, Denies depression, Denies memory loss and Denies panic attacks Chris/Lymph Denies easy bleeding and Denies easy bruising Aller/Immun Denies wheezing Physical exam (Primary Care) Vital Signs: Last Vital Signs Pulse 85 03/25/23 11:28 Resp 17 03/25/23 11:28 BP 102/62 03/25/23 11:28 Pulse Ox 98 03/25/23 11:28 Oxygen Delivery Method Room Air 03/25/23 11:28 BMI result Body Mass Index 25.4 Tobacco/Smoking Status: Tobacco use Status Tobacco use date assessed 02/23/23 03/25/23 11:32 Patient Tobacco Use Status Former Tobacco user 03/25/23 11:32 e-Cigarette/Vaping Use Never Used 03/25/23 11:32 Thrive Assessment: Date of Thrive Assessment Date Thrive assessed 02/23/23 03/25/23 11:32 Const General: healthy appearing, no acute distress, alert and awake Nutritional Appearance: well nourished Orientation/consciousness: oriented to person, oriented to place and oriented to time [facility] Ears: TM's normal bilaterally General nose exam: Normal nasal mucous membranes and turbinates present Eyes Conjunctivae: conjunctivae normal Sclerae: sclerae normal Pupils: Equal, round and reactive pupils present Neck Neck: Yes no lymphadenopathy and Yes no JVD Thyroid: Thyroid normal Carotids: no bruits Resp Effort & Inspection: normal respiratory effort and not tachypneic Auscultation: no crackles, no rales, no rhonchi and no wheezes Cardio Rate: regular rate Rhythm: regular rhythm Heart sounds: no murmurs and normal S1 and S2 GI Other: MUCH IMPROVED ABDOMINAL DISTENSION, MUCH SOFTER ABDOMEN. Palpation (GI): Soft to palpation, nontender, no hepatomegaly and no splenomegaly Auscultation: normal bowel sounds Skin General skin exam: no rashes or lesions noted and dry skin Neuro General: oriented to person, oriented to place and oriented to time Cranial nerves: Yes Equal, round and reactive pupils present Speech: No Abnormal speech present Gait exam (Neuro): Normal gait present Motor exam (neuro): no tremor noted Extrem Other: IMPROVED LOWER EXTREMITY EDEMA, PEDAL EDEMA STILL PRESENT Right upper extremity: full ROM Left upper extremity: full ROM Right lower extremity: full ROM and edema Left lower extremity: full ROM and edema Psych Mental Status: mental status grossly normal Speech and movement: Normal speech and movement present Affect: normal affect Attitude: cooperative Thought process: Normal thought process present Assessment and Plan Assessment & Plan (1) Alcoholic cirrhosis of liver: Code(s): K70.30 - Alcoholic cirrhosis of liver without ascites Qualifiers: Ascites presence: without ascites Qualified Code(s): K70.30 - Alcoholic cirrhosis of liver without ascites Plan: As per HPI patient recently experienced acute liver failure due to alcoholic cirrhosis resulting in moderate to severe ascites. Required hospital admission and paracentesis with large amount of fluid removed from abdomen and lung. He is now sober from alcohol over the last 2 months and weight has drastically reduced with the use of spironolactone and furosemide. Now followed by GI in will be getting workup with abdominal ultrasound and labs. (2) Hypokalemia: Code(s): E87.6 - Hypokalemia Plan: Noted hypokalemia most recent labs. Will start potassium supplementation and reduce his furosemide dose to 40 mg daily. Continue his spironolactone at 150 mg daily. Advised to check potassium in the next 3 days. Coding Level of Care Code Est Pt Level 4 (99322) Diagnoses Alcoholic cirrhosis of liver without ascites K70.30 Ascites presence: without ascites Hypokalemia E87.6
[2023-03-25 11:28] VITALS: BP 102/62; PULSE 85; RESP 17; O2SAT 98; BMI 25.4
== END 2023-03-25 12:03 | disposition home or self-care (01) ==
PROVIDERS: PCP Physician Assistant; Visit Provider Physician Assistant
DX: K70.30 Alcoholic cirrhosis of liver without ascites (principal); E87.6 Hypokalemia
CPT/HCPCS: 99214

== ENCOUNTER 2023-03-30 13:05 | Outpatient (REF) | payer OTHER, SELFPAY ==
--- NOTE | ~2023-03-30 | US_ITS ---
EXAMINATION: US SCROTUM CLINICAL INFORMATION: Other specified disorders of the male genital organs. COMPARISON: None available. TECHNIQUE: A sonogram of the scrotum was performed assessing jorgensen-scale appearance and color Doppler flow. Spectral Doppler analysis of the arterial and venous flow were performed in the testes bilaterally. FINDINGS: RIGHT: Right testicle measures 3.1 x 2.1 x 2.6 cm, volume 8.9 mL. No focal testicular parenchymal lesions are visualized. Spectral Doppler analysis of the arterial and venous flow is normal in the right testis. Right epididymal head is normal in size. No right varicocele is seen. Complex right hydrocele with internal echoes characteristic of debris. Right epididymal Doppler flow is normal. LEFT: Left testicle measures 3.4 x 1.8 x 2.4 cm, volume 7.8 mL. No focal testicular parenchymal lesions are visualized. Spectral Doppler analysis of the arterial and venous flow is normal in the left testis. Left epididymal head is normal in size. No left hydrocele or varicocele is seen. Left epididymal Doppler flow is normal. US/US scrotum IMPRESSION: Large complex right hydrocele with scattered internal echoes characteristic of debris. Urology consultation recommended to determine further management.
[2023-03-30 15:03] LABS: Hematocrit 29.9 % (42.0-52.0); Mean Corpuscular HGB Conc 33.4 g/dl (31.0-36.0); Mean Corpuscular Hemoglobin 33.2 pg (27.0-33.0); Mean Corpuscular Volume 99.3 fL (80.0-98.0); Mean Platelet Volume 11.6 fL (9.4-12.4); Platelet Count 145 X10*3/uL (160-400); Red Blood Count 3.01 X10*6/uL (4.60-5.80); Red Cell Distribution Width 14.8 % (11.0-16.0); White Blood Count 5.9 X10*3/uL (4.8-10.8)
[2023-03-30 16:00] LABS: Alanine Aminotransferase 22 U/L (0-40); Albumin Level 2.8 g/dL (3.5-5.0); Alkaline Phosphatase 169 U/L (39-117); Anion Gap 15 (12-20); Aspartate Amino Transferase 49 U/L (5-37); Bilirubin Direct 2.8 mg/dL (0.0-0.5); Bilirubin Total 9.2 mg/dL (0.0-1.0); Blood Urea Nitrogen 7 mg/dL (9-16); Calcium 8.2 mg/dL (8.4-10.2); Carbon Dioxide 24 mmol/L (22-29); Chloride 102 mmol/L (96-108); Estimated Glomerular Filt Rate > 60; Glucose Random 109 mg/dL (60-115); Iron 162 mcg/dL (45-160); Lactate Dehydrogenase 215 U/L (118-273); Percent Iron Saturation 81 % (15-50); Potassium 2.7 mmol/L (3.3-5.1); Sodium 138 mmol/L (135-145); Total Iron Binding Capacity 199 mcg/dL (228-428); Total Protein 6.9 g/dL (6.5-8.0); Unsaturated Iron Binding 37 ug/dL
[2023-03-30 16:06] LABS: Ferritin 179 ng/mL (20-250)
[2023-03-30 23:09] LABS: Haptoglobin <10 MG/DL ((30-200))
== END 2023-03-30 13:06 | disposition home or self-care (01) ==
LOC: HO.US 13:05
PROVIDERS: Internal Medicine; Absent Provider Physician Assistant; PCP Physician Assistant; Visit Provider Urology
DX: N50.89 Other specified disorders of the male genital organs (principal); R18.8 Other ascites; D64.9 Anemia, unspecified; E80.6 Other disorders of bilirubin metabolism
CPT/HCPCS: 36415; 76870; 80048; 80076; 82728; 83010; 83540; 83615; 85027

== ENCOUNTER 2023-04-20 08:57 | Outpatient (REF) | payer OTHER, SELFPAY ==
--- NOTE | ~2023-04-20 | US_ITS ---
EXAMINATION: US ABDOMEN COMPLETE CLINICAL INFORMATION: Alcoholic cirrhosis of the liver without ascites. COMPARISON: None available. TECHNIQUE: Real-time imaging of the abdominal viscera. FINDINGS: PANCREAS: Not seen due to bowel gas ABDOMINAL AORTA: The proximal, mid, and distal segments are normal in caliber. INFERIOR VENA CAVA: Visualized portions are normal. LIVER: Upper normal-size liver. The liver contour is normal. Liver echotexture is slightly increased.. No focal hepatic lesion. There is no intrahepatic biliary duct dilatation seen. GALLBLADDER: Gallbladder is upper normal in size. There are gallstones in the gallbladder. Gallbladder wall is thickened COMMON BILE DUCT: Normal in caliber measuring 0.4 cm in diameter. Measuring 4 mm. There is a small amount of pericholecystic fluid. RIGHT KIDNEY: Multiple small stones largest measuring 4 x 6 mm in the lower pole No hydronephrosis or focal parenchymal lesions. The kidney measures 11.8 cm in maximum dimension. LEFT KIDNEY: Multiple small stones, largest measuring 4 mm in the midpole No hydronephrosis or focal parenchymal lesions. The kidney measures 11.7 cm in maximum dimension. SPLEEN: The spleen is enlarged. The spleen measures 16.3 cm in maximum dimension. FREE FLUID: Small amount of ascites. US/US abdomen complete IMPRESSION: Upper normal-size slightly echogenic liver. No evidence of cirrhosis or focal liver lesion. Small amount of ascites. Splenomegaly. Upper normal-size gallbladder with gallstones and gallbladder wall thickening. This may be related to the patient's liver disease. If there is clinical suspicion of cholecystitis, HIDA scan would be recommended. Multiple small bilateral renal stones.
[2023-04-20 10:48] LABS: Anion Gap 14 (12-20); Blood Urea Nitrogen 9 mg/dL (9-16); Calcium 8.3 mg/dL (8.4-10.2); Carbon Dioxide 23 mmol/L (22-29); Chloride 105 mmol/L (96-108); Estimated Glomerular Filt Rate > 60; Glucose Random 116 mg/dL (60-115); Potassium 2.8 mmol/L (3.3-5.1); Sodium 139 mmol/L (135-145)
== END 2023-04-20 08:58 | disposition home or self-care (01) ==
LOC: HO.US 08:57
PROVIDERS: Absent Provider Physician Assistant; PCP Physician Assistant; Visit Provider Internal Medicine
DX: K70.30 Alcoholic cirrhosis of liver without ascites (principal); E87.6 Hypokalemia
CPT/HCPCS: 36415; 76700; 80048

== ENCOUNTER 2023-04-23 12:46 | Outpatient (AMB) | payer OTHER, SELFPAY ==
--- NOTE | 2023-04-23 12:55 | A.OFFVIS_ITS ---
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 Accompanied by: Self / Same As Patient Allergies No Known Allergies Allergy (Verified 04/28/23 10:32) Medication List - Last Reconciled 04/23/23 by Dinah Clement MD clotrimazole-betamethasone 1-0.05 % 1 appl topical BID 2 weeks folic acid 1 mg PO DAILY furosemide (Lasix) 20 mg PO DAILY 90 days multivitamin 1 tab PO DAILY 90 days pantoprazole 40 mg PO DAILY potassium chloride ER 40 mEq (2 x 20 mEq) PO DAILY 4 days prochlorperazine maleate 5 mg PO DAILY 90 days spironolactone 150 mg (1.5 x 100 mg) PO DAILY 90 days thiamine HCl (vitamin B1) 100 mg PO DAILY 90 days HPI HPI Comments History of Present Illness Details Erik is a 42-year-old male who presents today to the office for a follow-up. 04/23/2023? He is followed today for US results. He was last seen by me on 03/11/2023 for scrotal swelling. US of the scrotum was ordered. Results reviewed of scrotum US-- 03/30/2023-- Large complex right hydrocele with scattered internal echoes characteristic of debris. Patient states that there is no pain in the scrotum. He also states that the swelling of the scrotum has mildly improved at this time. Examination: Significant improvement of the penile and scrotal edema. Left testicle is palpated and there is fluid in the right penis scrotum and not able to palpate the right testicle due to hydrocele. Review of chart- US abd paracentesis 5/30/23 I reviewed the urine culture results from 02/24/2023 which came back 10,000 to 50,000 cfu/ml mixed bacterial savana characteristic of urogenital contamination. 04/23/2023: Plan:Ordered Lotrisone cream to apply twice a day. I will re assess the scrotum in 2 months and will re evaluate right hydrocele. Advised the patient to consider for excision of the hydrocele on follow-up. [facility] Surgical History History of esophagogastroduodenoscopy (EGD) No pertinent past surgical history Family History Mother No problems noted. Father No problems noted. Social History Housing: Apartment Alcohol intake: former Patient Tobacco Use Status: Former Tobacco user e-Cigarette/Vaping Use: Never Used Second Hand Smoke Exposure: No Substance Use Type: Marijuana service: No Current occupational status: employed Current occupation: [employer] Cognitive needs: No Hearing needs: No Vision needs: No Review of Systems Const All systems reviewed & are unremarkable except as noted in HPI and below Reports no additional complaints Eyes Reports no additional complaints ENT Reports no additional complaints Card Denies dyspnea Resp Denies cough and Denies dyspnea GI Reports no additional complaints Musc Reports no additional complaints Skin/Breast Denies rash and Denies unusual bruising Neuro Reports no additional complaints Psych Reports no additional complaints Endo Reports no additional complaints Chris/Lymph Reports no additional complaints Aller/Immun Reports no additional complaints Physical Exam Const General: healthy appearing, no acute distress and well developed Orientation/consciousness: patient oriented x3 HEENT Head: Yes normocephalic and Yes atraumatic Eyes Conjunctivae: conjunctivae normal Neck Neck: Yes normal visual inspection Chest Chest palpation & inspection: normal inspection of the chest Resp Effort & Inspection: normal respiratory effort Cardio Rate: regular rate GI Inspection: Yes normal to inspection Palpation (GI): Soft to palpation Other: Significant improvement of the penile and scrotal edema. Left testicle is palpated and there is fluid in the right penis scrotum and not able to palpate the right testicle due to hydrocele. Skin General skin exam: no rashes or lesions noted Neuro General: patient oriented x3 Extrem General: No pedal edema Psych Appearance: grossly normal Affect: normal affect Results Reviewed Results Reviewed: Date of Service: 03/30/23 EXAMINATION: US SCROTUM CLINICAL INFORMATION:? Other specified disorders of the male genital organs. COMPARISON:? None available. FINDINGS: RIGHT: Right testicle measures 3.1 x 2.1 x 2.6 cm, volume 8.9 mL. No focal testicular parenchymal lesions are visualized. Spectral Doppler analysis of the arterial and venous flow is normal in the right testis. Right epididymal head is normal in size. No right varicocele is seen. Complex right hydrocele with internal echoes characteristic of debris. Right epididymal Doppler flow is normal. LEFT: Left testicle measures 3.4 x 1.8 x 2.4 cm, volume 7.8 mL. No focal testicular parenchymal lesions are visualized. Spectral Doppler analysis of the arterial and venous flow is normal in the left testis.? Left epididymal head is normal in size. No left hydrocele or varicocele is seen. Left epididymal Doppler flow is normal. IMPRESSION: Large complex right hydrocele with scattered internal echoes characteristic of debris. Urology consultation recommended to determine further management. Date of Service: 04/20/23 EXAMINATION: US ABDOMEN COMPLETE CLINICAL INFORMATION:? 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 COMPARISON:? None available. FINDINGS: PANCREAS: Not seen due to bowel gas ABDOMINAL AORTA: The proximal, mid, and distal segments are normal in caliber. INFERIOR VENA CAVA: Visualized portions are normal. LIVER: Upper normal-size liver. The liver contour is normal. Liver echotexture is slightly increased.. No focal hepatic lesion. There is no intrahepatic biliary duct dilatation seen. GALLBLADDER: Gallbladder is upper normal in size. There are gallstones in the gallbladder. Gallbladder wall is thickened COMMON BILE DUCT: Normal in caliber measuring 0.4 cm in diameter.? Measuring 4 mm. There is a small amount of pericholecystic fluid. RIGHT KIDNEY: Multiple small stones largest measuring 4 x 6 mm in the lower pole No hydronephrosis or focal parenchymal lesions. The kidney measures 11.8 cm in maximum dimension. LEFT KIDNEY: Multiple small stones, largest measuring 4 mm in the midpole No hydronephrosis or focal parenchymal lesions. The kidney measures 11.7 cm in maximum dimension. SPLEEN: The spleen is enlarged. The spleen measures 16.3 cm in maximum dimension.? FREE FLUID: Small amount of ascites. IMPRESSION:? Upper normal-size slightly echogenic liver. No evidence of cirrhosis or focal liver lesion. Small amount of ascites. Splenomegaly. Upper normal-size gallbladder with gallstones and gallbladder wall thickening. This may be related to the patient's liver disease. If there is clinical suspicion of cholecystitis, HIDA scan would be recommended. Multiple small bilateral renal stones. Assessment & Plan Assessment & Plan (1) Scrotal swelling: Code(s): N50.89 - Other specified disorders of the male genital organs (2) Scrotal edema: Code(s): N50.89 - Other specified disorders of the male genital organs (3) Ascites: Code(s): R18.8 - Other ascites (4) Penile swelling: Code(s): N48.89 - Other specified disorders of penis (5) Hydrocele, right: Code(s): N43.3 - Hydrocele, unspecified (6) Balanitis: Code(s): N48.1 - Balanitis Plan Ordered Lotrisone cream to apply twice a day. I will re assess the scrotum in 2 months and will re evaluate right hydrocele. Advised the patient to consider for excision of the hyrocele on follow-up. Medications: New clotrimazole-betamethasone 1-0.05 % 1 appl topical BID 45 grams 1RF 2 weeks Patient Instructions: The patient had an opportunity to ask questions regarding treatment plan. All questions were answered. Imaging, Laboratory studies and physical exam results were discussed and reviewed in detail. No major barriers to understanding were identified. The patient expressed understanding and agreement with the above treatment plan. The patient is aware they should contact our office by phone for worsening of their current condition or the appearance of new symptoms. Compliance is encouraged with any medications and followup testing that is ordered. It is a privilege to be allowed the opportunity to participate in the urologic care of your patient. If you have any questions or concerns regarding treatment for the above conditions please do not hesitate to contact me. The office telephone contact is [phone]. This note is constructed in part using voice recognition software. While every effort has been made to ensure accuracy agriscience instructor errors may have been included. Yours sincerely, Dinah Clement MD Coding Level of Care Code Est Pt Level 4 (52033) Diagnoses Scrotal swelling N50.89 Scrotal edema N50.89 Ascites R18.8 Penile swelling N48.89 Hydrocele, right N43.3 Balanitis N48.1
== END 2023-04-23 13:41 | disposition home or self-care (01) ==
PROVIDERS: PCP Physician Assistant; Visit Provider Urology
DX: N50.89 Other specified disorders of the male genital organs (principal); R18.8 Other ascites; N48.89 Other specified disorders of penis; N43.3 Hydrocele, unspecified; N48.1 Balanitis
CPT/HCPCS: 99214

== ENCOUNTER → 2023-04-23 12:46 | Outpatient (BNVA) | payer OTHER, SELFPAY | PROVIDERS: PCP Physician Assistant; Visit Provider Urology | DX: N50.82 Scrotal pain (principal); N43.3 Hydrocele, unspecified; N48.1 Balanitis; K70.30 Alcoholic cirrhosis of liver without ascites; R18.8 Other ascites | CPT/HCPCS: 99212 ==

== ENCOUNTER 2023-04-28 10:26 | Outpatient (AMB) | payer OTHER, SELFPAY ==
--- NOTE | 2023-04-28 10:30 | A.OFFVIS_ITS ---
Intake Vital Signs 04/28/23 10:32 Height 5 ft 8 in Weight 169 lb 12.095 oz BMI 25.8 BP 116/64 Blood Pressure Location Lt brachial Position Sitting Pulse 73 Intake Visit Reasons: 4 week follow up Intake Note: Erik presents in the office as a 4 week follow up. CC: He states that he is feeling okay today. He is not having any concerns at this time. Chemist Required: No Allergies No Known Allergies Allergy (Verified 04/28/23 10:32) HPI HPI Comments History of Present Illness Details 42 y.o M with etOH disorder who is prese nting to follow up for decompensated cirrhosis. 03/20/23: Reports getting diagnosed around 2-3 years ago when he went to [facility] for etOH intoxication and N/V and was told this is from etOH use. However at that time, pt continued to drink etOH and eventually decompensated with ascites less than a year later. He has since had multiple ER visits for ascites and therapeutic taps. He also reports having an EGD a few months ago but does not remember why it was done or what it showed- does not report any overt bleeding however. Pt now reports abstinence from etOH x2 months (mid Jan 2023) previously used to drink a pint of hard liquor daily x 15-20 years which got even worse after he from the mother of his kids almost 5 years ago. Hx of DUI almost 17-18 years ago in [place]. No rehab admissions. Currently does not hold a driving license in [place] but states that due to an issue with his documentation ( certificate). Does not report IVDU. Hep serologies negative from last year. Pt also used to take NSAIDs on a regular basis almost 2-3 times a week but doesnt take it anymore. Lives with his girlfriend. Has 2 children who live with their mother in [place]. They are aware of his liver condition and visited him during his hospitalisation as well. No fam hx of liver disease in first degree relatives. Most recent para was 03/06: 3L removed as para and 1 L thora. Dry weight 165#. Current weight is 174# Most recent US was in October 2022 ([facility]) no focal lesion. Slow flow detected in PV which was followed up with CT which showed patent PV. Currently on: Spironolactone 100 Furosemide 40 BID Multivitamins 04/28/23: Here for follow up after 4 weeks. Reports continued abstinence now 3 months out despite labs from 03/20 suggestive of etOH related hepatitis which by definition requires heavy drinking within 60 days. Main issue continues to be low potassium. Reports that even before he was on diuretics, often had issues with low potassium. Noted to have hypokalemia in Mar 2022 as well. 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 Records still awaiting from [facility] for admission during Jan 2023 - however today pt reports was admitted at [facility] and not [facility]. Current meds: MV Folic acid Mag and potassium Aldactone 150mg PFSH Surgical History History of esophagogastroduodenoscopy (EGD) No pertinent past surgical history Family History Mother No problems noted. Father No problems noted. 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 No evidence of cirrhosis or focal liver lesion. Small amount of ascites. Splenomegaly. Upper normal-size gallbladder with gallstones and gallbladder wall thickening. This may be related to the patient's liver disease. If there is clinical suspicion of cholecystitis, HIDA scan would be recommended. Multiple small bilateral renal stones. Assessment & Plan Assessment & Plan (1) Decompensation of cirrhosis of liver: Code(s): K72.90 - Hepatic failure, unspecified without coma; K74.60 - Unspecified cirrhosis of liver (2) Ascites: Code(s): R18.8 - Other ascites (3) Sarcopenia: Code(s): M62.84 - Sarcopenia Plan ?? Decompensated etOH related cirrhosis vs etOH hepatitis - ascites - hepatic hydrothorax MELD-Na 24 Child Ramirez Class C Chronic hypokalemia Discussed that based on overall assessment, may not have underlying cirrhosis and ascites could have been from etOH related acute hepatitis and portal HTN however true assessment to be deferred to 6m sobriety jen. Pt was congratulated on maintaining sobriety x 3 months and encouraged to continue strict abstinence. Did review that based on labs had significant hepatitis in Mar (MDF 71) however since pt had reported more than 2 months of abstinence at that time did not technically meet criteria for etOH hepatitis and tx. Will recheck labs today and if T bili and INR remain just as high, low threshold to trial corticosteroids. Discussed that depending on the degree of recuperation of liver function he may need a referral to liver transplant center as well. Will reassess liver function with labs and US in Jul 2023. In terms of hypokalemia which appears to be chronic, will likely need further work up. Reassuringly ascites responsive to aldactone monotherapy for now, but will check urine lytes and refer to Renal. Plan: - Labs ordered as below - If bili and INR do not trend down, low threshold to start corticosteroids trial - will need a day 7 [place]ille in that case - Cont spironolactone 150mg once daily - Salt restriction to 2g/day - If serum K remains < 3.5, will Rx potassium supplementation. - Referral to nephrology requested - Protein shakes BID Rxed for malnutrition and sarcopenia - No evidence of large volume ascites or HE on exam today - Obtain records from [facility] and [facility] including EGD - Cont etOH abstinence, reassessment of underlying liver function including US Abd will be performed at 6m sobriety jen i.e in Jul 2023 - Multivitamins refilled Follow up in 3 months Orders: Orders Prothrombin Time INR Today K72.90 - Hepatic failure, unspecified without coma, K74.60 - Unspecified cirrhosis of liver Liver Panel Today K72.90 - Hepatic failure, unspecified without coma, K74.60 - Unspecified cirrhosis of liver Complete Blood Count no Diff Today K72.90 - Hepatic failure, unspecified without coma, K74.60 - Unspecified cirrhosis of liver Phosphatidylethanol, Blood Today K70.30 - Alcoholic cirrhosis of liver without ascites Sodium Urine Random Today E87.6 - Hypokalemia Creatinine Urine Today E87.6 - Hypokalemia Potassium Urine Random Today E87.6 - Hypokalemia Referrals Nephrology Referral E87.6 - Hypokalemia Medications: New nutritional supplement-fiber (Compleat Standard 1.4 oral liquid) 1 ea PO BID 30 days 15,000 mL 2RF Refilled multivitamin 1 tab PO DAILY 90 days 90 tabs 3RF I10 - Essential (primary) hypertension thiamine HCl (vitamin B1) 100 mg PO DAILY 90 days 90 tabs 1RF K70.30 - Alcoholic cirrhosis of liver without ascites folic acid 1 mg PO DAILY 90 tabs 1RF K70.30 - Alcoholic cirrhosis of liver without ascites Coding Level of Care Code Est Pt Level 5 (39613) Diagnoses Decompensation of cirrhosis of liver K72.90; K74.60 Ascites R18.8 Sarcopenia M62.84
[2023-04-28 10:32] VITALS: BP 116/64; PULSE 73; BMI 25.8
== END 2023-04-28 11:03 | disposition home or self-care (01) ==
PROVIDERS: PCP Physician Assistant; Visit Provider Internal Medicine
DX: K72.90 Hepatic failure, unspecified without coma (principal); K74.60 Unspecified cirrhosis of liver; R18.8 Other ascites; M62.84 Sarcopenia
CPT/HCPCS: 99214

== ENCOUNTER → 2023-04-28 10:26 | Outpatient (BNVA) | payer OTHER, SELFPAY | PROVIDERS: PCP Physician Assistant; Visit Provider Internal Medicine | DX: K72.90 Hepatic failure, unspecified without coma (principal); K74.60 Unspecified cirrhosis of liver; R18.8 Other ascites; M62.84 Sarcopenia | CPT/HCPCS: 99212 ==

== ENCOUNTER 2023-06-16 08:21 | Outpatient (AMB) | payer OTHER, SELFPAY ==
--- NOTE | 2023-06-16 08:40 | A.OFFPC_ITS ---
Vital Signs 06/16/23 08:41 Height 5 ft 8 in Weight 180 lb 8 oz BMI 27.4 BP 120/60 Blood Pressure Location Lt brachial Position Sitting Pulse 65 Pulse Source Pulse Oximeter Pulse Oximetry (%) 97 Oxygen Delivery Method Room Air Intake Visit Reasons: f/u hepatitis Intake Note: Patient is here to follow up on hepatitis. 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 Specialist: Not Required per policy Accompanied by: Self / Same As Patient Allergies No Known Allergies Allergy (Verified 06/16/23 08:51) Medication List - Last Reconciled 06/16/23 by John Garcia PA-C clotrimazole-betamethasone 1-0.05 % 1 appl topical BID 2 weeks folic acid 1 mg PO DAILY multivitamin 1 tab PO DAILY 90 days spironolactone 150 mg (1.5 x 100 mg) PO DAILY 90 days thiamine HCl (vitamin B1) 100 mg PO DAILY 90 days Tobacco use date assessed: 06/16/23 Dental Screening Dental Screen Date: 06/16/23 Did you have a dental visit in the last 12 months?: Yes Did you have a dental problem in the last 6 months where you did not have access to dental care?: No Was dental information given to patient?: Patient has dentist HPI f/u hepatitis HPI Details Patient is a 42-year-old male here today for a follow-up visit.. 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 Has followed up with Gastroenterology and is due for lab testing and ultrasound of his abdomen. We have increased his spironolactone to 150 mg. Of note most recent labs showing low potassium. We have discontinued his furosemide due to hypokalemia. Unfortunately has noted some weight gain since being off Lasix--> in office visit though still has 1+ bilateral pedal edema to mid esparza. He assures me he has been staying away from alcohol, he does smoke marijuana on a daily basis. Hypokalemia: Continues to have hypokalemia and though is thought to be in the setting of alcohol use disorder/vomiting- GI volume loss though continues to have hypokalemia. Has upcoming appointment with Nephrology to evaluate his hypokalemia.. He will continue potassium supplementation 40 daily.\ [facility] Surgical History History of esophagogastroduodenoscopy (EGD) No pertinent past surgical history Family History Mother No problems noted. Father No problems noted. Social History Housing: Apartment Alcohol intake: former Patient Tobacco Use Status: Former Tobacco user e-Cigarette/Vaping Use: Never Used Second Hand Smoke Exposure: No Substance Use Type: Marijuana service: No Current occupational status: employed Current occupation: [employer] Cognitive needs: No Hearing needs: No Vision needs: No Questionnaire PHQ-9 Over the last 2 weeks, how often have you been bothered by any of the following problems? 1. Little interest or pleasure in doing things: not at all 2. Feeling down, depressed, or hopeless: not at all 3. Trouble falling or staying asleep, or sleeping too much: not at all 4. Feeling tired or having little energy: not at all 5. Poor appetite or overeating: not at all 6. Feeling bad about yourself - or that you are a failure or have let yourself or your family down: not at all 7. Trouble concentrating on things, such as reading the newspaper or watching television: not at all 8. Moving or speaking so slowly that other people could have noticed. Or the opposite - being so fidgety or restless that you have been moving around a lot more than usual: not at all 9. Thoughts that you would be better off or of hurting yourself in some way: not at all Total score: 0 Depression Screening Interpretation: Negative Depression Screening Done: Yes Source: Developed by Drs. Carlos Bell, Irene Parisi, Norm Osorio and colleagues, with an educational marco antonio from [employer]. Thrive Questionnaire Date Thrive assessed: 06/16/23 I am a: Patient What is your living situation today?: I have a steady place to live Within the past 12 months, did the food you bought not last and you didn't have the money to get more?: Never true Within the past 12 months, did you worry whether your food would run out before you got money to buy more?: Never true Do you have trouble paying for medicines?: No Do you have trouble getting transportation to medical appointments?: No Do you have trouble paying your heating and electricity bill?: No Do you have trouble taking care of your child, family member or friend?: No Do you have trouble with day-to-day activities such as bathing, preparing meals, shopping, managing finances, etc.?: No Are you currently unemployed and looking for a job?: No Are you interested in more education?: No Currently or been in a relationship where the following occur: no concerns reported AUDIT C Alcohol Use Questionnaire (AUDIT-C) 1. How often do you have a drink containing alcohol?: Never Total Score: 0 YARA-7 AMB Questionnaire YARA-7 Date YARA - 7 assessed: 06/16/23 Feeling nervous, anxious, or on edge: 0 = Not at all Not being able to stop or control worryin = Not at all Worrying too much about different things: 0 = Not at all Trouble relaxin = Not at all Being so restless that it is hard to sit still: 0 = Not at all Becoming easily annoyed or irritable: 0 = Not at all Feeling afraid as if something awful might happen: 0 = Not at all Total YARA-7 score (0-4 normal; 5-9 mild; 10-14 moderate; 15-21 severe): 0 Source: Developed by Drs. Carlos Bell, Irene Parisi, Norm Osorio and colleagues, with an educational marco antonio from [employer]. Review of Systems Const Denies headache(s) Eyes Denies loss of vision ENT Denies vertigo, Denies dizziness, Denies headache(s) and Denies sore throat Card Denies chest pain, Denies leg edema and Denies lightheadedness Resp Denies cough, Denies hemoptysis and Denies wheezing GI Denies abdominal pain, Denies melena, Denies constipation, Denies diarrhea and Denies vomiting Denies dysuria, Denies urinary frequency and Denies urinary urgency Musc Denies arthralgias, Denies joint swelling, Denies numbness and Denies tingling Neuro Denies Abnormal speech present, Denies behavioral changes, Denies vertigo, Denies dizziness, Denies headache(s), Denies loss of vision, Denies memory loss, Denies numbness and Denies tingling Psych Denies anxiety, Denies behavioral changes, Denies depression, Denies memory loss and Denies panic attacks Chris/Lymph Denies easy bleeding and Denies easy bruising Aller/Immun Denies wheezing Physical exam (Primary Care) Vital Signs: Last Vital Signs Pulse 65 06/16/23 08:41 BP 120/60 06/16/23 08:41 Pulse Ox 97 06/16/23 08:41 Oxygen Delivery Method Room Air 06/16/23 08:41 BMI result Body Mass Index 27.4 Tobacco/Smoking Status: Tobacco use Status Tobacco use date assessed 06/16/23 06/16/23 08:48 Patient Tobacco Use Status Former Tobacco user 06/16/23 08:48 e-Cigarette/Vaping Use Never Used 06/16/23 08:48 PHQ-9: PHQ-9 Score PHQ-9: Total score 0 06/16/23 08:48 Depression Screening Interpretation: Negative Thrive Assessment: Date of Thrive Assessment Date Thrive assessed 06/16/23 06/16/23 08:48 Currently or been in a relationship where the following occur: no concerns reported Const General: healthy appearing, no acute distress, alert and awake Nutritional Appearance: well nourished Orientation/consciousness: oriented to person, oriented to place and oriented to time HENMT Ears: TM's normal bilaterally General nose exam: Normal nasal mucous membranes and turbinates present Eyes Conjunctivae: conjunctivae normal Sclerae: sclerae normal Pupils: Equal, round and reactive pupils present Neck Neck: Yes no lymphadenopathy and Yes no JVD Thyroid: Thyroid normal Carotids: no bruits Resp Effort & Inspection: normal respiratory effort and not tachypneic Auscultation: no crackles, no rales, no rhonchi and no wheezes Cardio Rate: regular rate Rhythm: regular rhythm Heart sounds: no murmurs and normal S1 and S2 GI Palpation (GI): Soft to palpation, nontender, no hepatomegaly and no splenomegaly Auscultation: normal bowel sounds Skin General skin exam: no rashes or lesions noted and dry skin Neuro General: oriented to person, oriented to place and oriented to time Cranial nerves: Yes Equal, round and reactive pupils present Speech: No Abnormal speech present Gait exam (Neuro): Normal gait present Motor exam (neuro): no tremor noted Extrem Right upper extremity: full ROM Left upper extremity: full ROM Right lower extremity: full ROM and edema Left lower extremity: full ROM and edema Psych Mental Status: mental status grossly normal Speech and movement: Normal speech and movement present Affect: normal affect Attitude: cooperative Thought process: Normal thought process present Assessment and Plan Assessment & Plan (1) Alcoholic cirrhosis of liver: Code(s): K70.30 - Alcoholic cirrhosis of liver without ascites Qualifiers: Ascites presence: without ascites Qualified Code(s): K70.30 - Alcoholic cirrhosis of liver without ascites Plan: Interval history A--> experienced acute liver failure due to alcoholic cirrhosis resulting in moderate to severe ascites. Required hospital admission and paracentesis with large amount of fluid removed from abdomen and lung. He is now sober from alcohol over the last 4 months. He stopped using Aldactone recently as he felt it was not helpful. Explained that he needed this medication for his abdominal ascites. Has gained weight since last office visit. Will restart Lasix 40 mg with aldactone 150 mg. Advised to take daily weights. --->Dry weight usually around 165 lbs (2) Hypokalemia: Code(s): E87.6 - Hypokalemia Plan: Noted hypokalemia most recent labs. Will continue his potassium supplementation. Does have upcoming appointment with Nephrology. Will restart Lasix 40 mg for the next week as he has noted weight gain (bila teral lower extremity edema) since last office visit. Advised to check potassium in the next 3 days. Orders: Orders Basic Metabolic Panel Today E87.6 - Hypokalemia Liver Panel Today K70.30 - Alcoholic cirrhosis of liver without ascites Medications: New potassium chloride ER (Klor-Con M) 40 mEq (2 x 20 mEq) PO DAILY 30 days 60 tabs 1RF E87.6 - Hypokalemia furosemide (Lasix) 40 mg (2 x 20 mg) PO DAILY 15 days 30 tabs 1RF R18.8 - Other ascites Coding Level of Care Code Est Pt Level 4 (66807) Diagnoses Alcoholic cirrhosis of liver without ascites K70.30 Ascites presence: without ascites Hypokalemia E87.6
[2023-06-16 08:41] VITALS: BP 120/60; PULSE 65; O2SAT 97; BMI 27.4
== END 2023-06-16 09:06 | disposition home or self-care (01) ==
PROVIDERS: PCP Physician Assistant; Visit Provider Physician Assistant
DX: K70.30 Alcoholic cirrhosis of liver without ascites (principal); E87.6 Hypokalemia
CPT/HCPCS: 99214

== ENCOUNTER 2023-06-25 11:38 | Outpatient (AMB) | payer OTHER, SELFPAY ==
--- NOTE | 2023-06-25 11:39 | A.OFFVIS_ITS ---
Intake Intake Visit Reasons: 2m follow up Intake Note: Patient presents today for a 2 MO follow-up Swollen Scrotum: US Completed on 04/20/2023 Meds- None Allergies to Antibiotic- No Known Allergies Blood Thinner- Furosemide Unable to void Candle Wicker Required: No Accompanied by: Self / Same As Patient Allergies No Known Allergies Allergy (Verified 06/16/23 08:51) HPI HPI Comments History of Present Illness Details Erik is a 42-year-old male who presents today to the office for a follow-up. 06/25/23--- H/O Etoh abuse, Co morbidity Ascites. Pt states he has continued to abstain from Etoh. denies urinary symptoms. Exam penile swelling resolved, scrotal swelling, significantly improved. Review of chart: LV---04/23/2023? He is followed today for US results. He was last seen by me on 03/11/2023 for scrotal swelling. US of the scrotum was ordered. Results reviewed of scrotum US-- 03/30/2023-- Large complex right hydrocele with scattered internal echoes characteristic of debris. Patient states that there is no pain in the scrotum. He also states that the swelling of the scrotum has mildly improved at this time. Results: US abd paracentesis 11/11/22 urine culture results from 02/24/2023 which came back 10,000 to 50,000 cfu/ml mixed bacterial savana characteristic of urogenital contamination. 06/25/23: Plan:FU in 7 months, US scrotum - prior pt is not bothered by scrotal swelling which has improved significantly, pt received lasix therapy for his ascities condition. Will hold on surgical intervention will monitor conservatively. [facility] Surgical History History of esophagogastroduodenoscopy (EGD) No pertinent past surgical history Family History Mother No problems noted. Father No problems noted. 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 needs: No Hearing needs: No Vision needs: No Review of Systems Const All systems reviewed & are unremarkable except as noted in HPI and below Reports no additional complaints Eyes Reports no additional complaints ENT Reports no additional complaints Card Denies dyspnea Resp Denies cough and Denies dyspnea GI Reports no additional complaints Musc Reports no additional complaints Skin/Breast Denies rash and Denies unusual bruising Neuro Reports no additional complaints Psych Reports no additional complaints Endo Reports no additional complaints Chris/Lymph Reports no additional complaints Aller/Immun Reports no additional complaints Assessment & Plan Assessment & Plan (1) Scrotal swelling: Code(s): N50.89 - Other specified disorders of the male genital organs (2) Ascites: Code(s): R18.8 - Other ascites (3) Hydrocele, right: Code(s): N43.3 - Hydrocele, unspecified Plan FU in 7 months, US scrotum- prior pt is not bothered by scrotal swelling which has improved significantly, pt received lasix therapy for his ascities condition. Will hold on surgical intervention will monitor conservatively. Patient Instructions: The patient had an opportunity to ask questions regarding treatment plan. All questions were answered. Imaging, Laboratory studies and physical exam results were discussed and reviewed in detail. No major barriers to understanding were identified. The patient expressed understanding and agreement with the above treatment plan. The patient is aware they should contact our office by phone for worsening of their current condition or the appearance of new symptoms. Compliance is encouraged with any medications and followup testing that is ordered. It is a privilege to be allowed the opportunity to participate in the urologic care of your patient. If you have any questions or concerns regarding treatment for the above conditions please do not hesitate to contact me. The office telephone contact is [phone]. This note is constructed in part using voice recognition software. While every effort has been made to ensure accuracy screw supervisor errors may have been included. Yours sincerely, Dinah Clement MD Coding Level of Care Code Est Pt Level 3 (81003) Diagnoses Scrotal swelling N50.89 Ascites R18.8 Hydrocele, right N43.3
== END 2023-06-25 12:02 | disposition home or self-care (01) ==
PROVIDERS: PCP Physician Assistant; Visit Provider Urology
DX: N50.89 Other specified disorders of the male genital organs (principal); R18.8 Other ascites; N43.3 Hydrocele, unspecified
CPT/HCPCS: 99213

== ENCOUNTER → 2023-06-25 11:38 | Outpatient (BNVA) | payer OTHER, SELFPAY | PROVIDERS: PCP Physician Assistant; Visit Provider Urology | DX: N50.89 Other specified disorders of the male genital organs (principal); R18.8 Other ascites; N43.3 Hydrocele, unspecified | CPT/HCPCS: 99212 ==

== ENCOUNTER 2023-07-15 11:27 | Outpatient (AMB) | payer OTHER, SELFPAY ==
[2023-07-15 11:30] VITALS: BP 116/68; BMI 26.3
--- NOTE | 2023-07-15 11:30 | HO.NEPHOV_ITS ---
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 Father No problems noted. 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 needs: No Hearing needs: No Vision needs: No Vital Signs 07/15/23 11:30 Height 5 ft 8 in Weight 173 lb BMI 26.3 BP 116/68 Blood Pressure Location Lt brachial Position Sitting Physical Exam Vital Signs: Last Vital Signs BP 116/68 07/15/23 11:30 BMI result Body Mass Index 26.3 Const General: comfortable Nutritional Appearance: well nourished Orientation/consciousness: patient oriented x3 HEENT Head: No normal to inspection Mouth: moist mucous membranes Neck Neck: Yes supple and Yes no JVD Resp Auscultation: clear to auscultation bilaterally, no rales and rub present Cardio Jugular venous distension: no JVD Palpation: no palpable S3 and no palpable S4 Heart sounds: no rubs GI Palpation (GI): Soft to palpation and nontender Percussion: No Fluid wave present General: Yes no CVA tenderness Back/Spine/Pelvis Back: no CVA tenderness Skin General skin exam: no rashes or lesions noted and jaundice Neuro General: patient oriented x3 Extrem General: Yes no pedal edema and No clubbing Assessment & Plan Assessment & Plan (1) Hypokalemia: Code(s): E87.6 - Hypokalemia (2) Anemia: Code(s): D64.9 - Anemia, unspecified (3) Alcoholic cirrhosis of liver: Code(s): K70.30 - Alcoholic cirrhosis of liver without ascites Qualifiers: Ascites presence: without ascites Qualified Code(s): K70.30 - Alcoholic cirrhosis of liver without ascites Plan . Middle aged man with Alcoholic cirrhosis and essentially normal renal function has persistent Hypokalemia Most likely due to renal loss of Potassium due to loop diretics Extrarenal causes will be ruled out Work up as outlined In the mean time, Continue with Potassium supplementation along with LAsix and Aldactone Needs to stay on low salt diet Will recheck K today and adjust supplementation Orders: Orders Sodium Urine Random Today D64.9 - Anemia, unspecified, E87.6 - Hypokalemia, K70.30 - Alcoholic cirrhosis of liver without ascites UA and rflx microscopic Today D64.9 - Anemia, unspecified, E87.6 - Hypokalemia, K70.30 - Alcoholic cirrhosis of liver without ascites Creatinine Urine Today D64.9 - Anemia, unspecified, E87.6 - Hypokalemia, K70.30 - Alcoholic cirrhosis of liver without ascites Magnesium Today D64.9 - Anemia, unspecified, E87.6 - Hypokalemia, K70.30 - Alcoholic cirrhosis of liver without ascites Complete Blood Count no Diff Today D64.9 - Anemia, unspecified, E87.6 - Hypokalemia, K70.30 - Alcoholic cirrhosis of liver without ascites Comprehensive Met. Panel Today D64.9 - Anemia, unspecified, E87.6 - Hypokalemia, K70.30 - Alcoholic cirrhosis of liver without ascites Total Protein Urine Random Today D64.9 - Anemia, unspecified, E87.6 - Hypokalemia, K70.30 - Alcoholic cirrhosis of liver without ascites Coding Level of Care Code New Pt Level 4 (68363) Diagnoses Hypokalemia E87.6 Anemia D64.9 Alcoholic cirrhosis of liver without ascites K70.30 Ascites presence: without ascites Results Reviewed Nephrology Results: Hgb 10.0 g/dl (14.0-18.0) L 03/30/23 WBC 5.9 X10*3/uL (4.8-10.8) 03/30/23 Plt Count 145 X10*3/uL (160-400) L 03/30/23 Sodium 139 mmol/L (135-145) 04/20/23 Potassium 2.8 mmol/L (3.3-5.1) L 04/20/23 Chloride 105 mmol/L (96-108) 04/20/23 Carbon Dioxide 23 mmol/L (22-29) 04/20/23 BUN 9 mg/dL (9-16) 04/20/23 Creatinine 0.80 mg/dL (0.5-1.4) 04/20/23 Calcium 8.3 mg/dL (8.4-10.2) L 04/20/23
== END 2023-07-15 11:50 | disposition home or self-care (01) ==
PROVIDERS: PCP Physician Assistant; Referring Provider Internal Medicine; Visit Provider Internal Medicine Hypertension Specialist
DX: E87.6 Hypokalemia (principal); D64.9 Anemia, unspecified; K70.30 Alcoholic cirrhosis of liver without ascites
CPT/HCPCS: 99204

== ENCOUNTER → 2023-07-15 11:27 | Outpatient (BNVA) | payer OTHER, SELFPAY | PROVIDERS: PCP Physician Assistant; Referring Provider Internal Medicine; Visit Provider Internal Medicine Hypertension Specialist | DX: K70.30 Alcoholic cirrhosis of liver without ascites (principal); E87.6 Hypokalemia; D64.9 Anemia, unspecified | CPT/HCPCS: 99202 ==

== ENCOUNTER 2023-08-05 11:53 | Outpatient (AMB) | payer OTHER, SELFPAY ==
--- NOTE | 2023-08-05 11:58 | MHC.OFFVIS ---
Intake Vital Signs 08/05/23 12:00 Height 5 ft 8 in Weight 163 lb BMI 24.8 BP 112/70 Blood Pressure Location Rt brachial Position Sitting Pulse 82 Pulse Source Monitor Intake Visit Reasons: follow up Intake Note: Patient states he feels good no GI concerns for today. Guest Relations Coordinator Required: No Accompanied by: Self / Same As Patient Allergies No Known Allergies Allergy (Verified 08/05/23 12:02) HPI HPI Comments History of Present Illness Details 42 y.o M with etOH disorder who is presenting to follow up for decompensated cirrhosis. 03/20/23: Reports getting diagnosed around 2-3 years ago when he went to [facility] for etOH intoxication and N/V and was told this is from etOH use. However at that time, pt continued to drink etOH and eventually decompensated with ascites less than a year later. He has since had multiple ER visits for ascites and therapeutic taps. He also reports having an EGD a few months ago but does not remember why it was done or what it showed- does not report any overt bleeding however. Pt now reports abstinence from etOH x2 months (mid Jan 2023) previously used to drink a pint of hard liquor daily x 15-20 years which got even worse after he from the mother of his kids almost 5 years ago. Hx of DUI almost 17-18 years ago in [place]. No rehab admissions. Currently does not hold a driving license in [place] but states that due to an issue with his documentation ( certificate). Does not report IVDU. Hep serologies negative from last year. Pt also used to take NSAIDs on a regular basis almost 2-3 times a week but doesnt take it anymore. Lives with his girlfriend. Has 2 children who live with their mother in [place]. They are aware of his liver condition and visited him during his hospitalisation as well. No fam hx of liver disease in first degree relatives. Most recent para was 03/06: 3L removed as para and 1 L thora. Dry weight 165#. Current weight is 174# Most recent US was in October 2022 ([facility]) no focal lesion. Slow flow detected in PV which was followed up with CT which showed patent PV. Currently on: Spironolactone 100 Furosemide 40 BID Multivitamins 04/28/23: Here for follow up after 4 weeks. Reports continued abstinence now 3 months out despite labs from 10/6 suggestive of etOH related hepatitis which by definition requires heavy drinking within 60 days. Main issue continues to be low potassium. Reports that even before he was on diuretics, often had issues with low potassium. Noted to have hypokalemia in Mar 2022 as well. Has never seen [facility]. Records still awaiting from [facility] for admission during Jan 2023 - however today pt reports was admitted at [facility] and not [facility]. Current meds: MV Folic acid Mag and potassium Aldactone 150mg 08/05/23: Remains abstinent from etOH. No drink since end of Jan. Has been seen by Renal and undergoing work up for hypoK but most likely due to loop diuretics. However furosemide noted to be back on his med list.. He is unsure who resumed it. Current meds: Furosemide 40 Spironolactone 150 Potassium chloride 40 meq MV, folic acid PFSH Surgical History History of esophagogastroduodenoscopy (EGD) No pertinent past surgical history Family History Mother No problems noted. Father No problems noted. 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 needs: No Hearing needs: No Vision needs: No Review of Systems Const All systems reviewed & are unremarkable except as noted in HPI and below Physical Exam Vital Signs: Last Vital Signs Pulse 82 08/05/23 12:00 BP 112/70 08/05/23 12:00 BMI result Body Mass Index 24.8 Gen Appear: NAD, well nourished HEENT: scleral icterus, mild bitemporal wasting noted Chest: CTA CVS: Regular S1/S2 no murmurs Abd: soft, nontender, non distended Neuro: A/Ox3, no asterixis HEENT Other: icterus Assessment & Plan Assessment & Plan (1) Decompensation of cirrhosis of liver: Code(s): K72.90 - Hepatic failure, unspecified without coma; K74.60 - Unspecified cirrhosis of liver (2) Ascites: Code(s): R18.8 - Other ascites (3) Sarcopenia: Code(s): M62.84 - Sarcopenia Plan ?? Decompensated etOH related cirrhosis vs etOH hepatitis - ascites - hepatic hydrothorax MELD-Na 24 Child Ramirez Class C Chronic hypokalemia Scleral icterus noted on exam today which is suprising as reports 6m abstinence from etOH. Will check all MELD labs including LFTs. No evidence of ascites on exam today and suspect may not need the same dose of diuretics. Will review BMP and make changes as needed. Discussed that based on overall assessment, may not have underlying cirrhosis and ascites could have been from etOH related acute hepatitis and portal HTN. Discussed that depending on the reassessment of liver function with labs and US, will decide if needs to be referred for transplant eval. In terms of hypokalemia which appears to be chronic, recently established with Renal. Had discontinued his loop diuretic at last visit with me but seems got resumed by a different provider. No evidence of large volume ascites on exam today so suspect can go back to aldactone monotherapy. Will review BMP. Plan: - Check MELD labs - neftali given icterus on exam despite reported abstinence from etOH - Cont lasix and aldactone as is for now - will discuss further management based on updated labs - Salt restriction to 2g/day - Follow up with renal for hypoK as scheduled - No evidence of large volume ascites or HE on exam today - US Abd due in October 2023 - Cont etOH abstinence - Indication for transplan eval contingent on above Follow up in 3 months Orders: Orders Complete Blood Count no Diff 08/05/23 K70.30 - Alcoholic cirrhosis of liver without ascites Comprehensive Met. Panel 08/05/23 K70.30 - Alcoholic cirrhosis of liver without ascites Prothrombin Time INR 08/05/23 K70.30 - Alcoholic cirrhosis of liver without ascites Coding Level of Care Code Est Pt Level 5 (28397) Diagnoses Decompensation of cirrhosis of liver K72.90; K74.60 Ascites R18.8 Sarcopenia M62.84
[2023-08-05 12:00] VITALS: BP 112/70; PULSE 82; BMI 24.8
== END 2023-08-05 12:54 | disposition home or self-care (01) ==
PROVIDERS: PCP Physician Assistant; Visit Provider Internal Medicine
DX: K72.90 Hepatic failure, unspecified without coma (principal); K74.60 Unspecified cirrhosis of liver; R18.8 Other ascites; M62.84 Sarcopenia
CPT/HCPCS: 99214

== ENCOUNTER 2023-08-05 11:53 | Outpatient (REF) | payer OTHER, SELFPAY ==
[2023-08-05 13:54] LABS: Hematocrit 36.1 % (42.0-52.0); Hemoglobin 12.4 g/dl (14.0-18.0); Mean Corpuscular HGB Conc 34.3 g/dl (31.0-36.0); Mean Corpuscular Hemoglobin 32.8 pg (27.0-33.0); Mean Corpuscular Volume 95.5 fL (80.0-98.0); Red Blood Count 3.78 X10*6/uL (4.60-5.80); Red Cell Distribution Width 15.9 % (11.0-16.0); White Blood Count 4.7 X10*3/uL (4.8-10.8)
[2023-08-05 13:56] LABS: INTERNATIONAL NORM RATIO 1.8 (0.9-1.1); Prothrombin Time 22.4 SEC (11.1-13.3)
[2023-08-05 14:24] LABS: Mean Platelet Volume 12.3 fL (9.4-12.4); Platelet Count 86 X10*3/uL (160-400)
[2023-08-05 14:25] LABS: Alanine Aminotransferase 25 U/L (0-40); Albumin Level 3.6 g/dL (3.5-5.0); Alkaline Phosphatase 188 U/L (39-117); Anion Gap 15 (12-20); Aspartate Amino Transferase 93 U/L (5-37); Blood Urea Nitrogen 12 mg/dL (9-16); Calcium 8.4 mg/dL (8.4-10.2); Carbon Dioxide 27 mmol/L (22-29); Chloride 99 mmol/L (96-108); Estimated Glomerular Filt Rate > 60; Glucose Random 122 mg/dL (60-115); Sodium 138 mmol/L (135-145); Total Protein 8.2 g/dL (6.5-8.0)
[2023-08-05 15:03] LABS: Potassium 2.7 mmol/L (3.3-5.1)
== END 2023-08-05 11:54 | disposition home or self-care (01) ==
LOC: HO.LAB 11:53
PROVIDERS: PCP Physician Assistant; Referring Provider Physician Assistant; Visit Provider Internal Medicine
DX: K70.31 Alcoholic cirrhosis of liver with ascites (principal); K72.90 Hepatic failure, unspecified without coma; M62.84 Sarcopenia; Z79.899 Other long term (current) drug therapy
CPT/HCPCS: 36415; 80053; 85027; 85610; 99212

== ENCOUNTER 2023-08-10 10:45 | Outpatient (AMB) | payer OTHER, SELFPAY ==
--- NOTE | 2023-08-10 11:14 | A.OFFPC_ITS ---
Vital Signs 08/10/23 11:21 Height 5 ft 8 in Weight 167 lb 6 oz BMI 25.4 BP 110/62 Blood Pressure Location Lt brachial Position Sitting Pulse 70 Pulse Source Pulse Oximeter Pulse Oximetry (%) 99 Oxygen Delivery Method Room Air Intake Visit Reasons: 3 week f/u low potassium Mamma Logist Required: No Accompanied by: Self / Same As Patient Allergies No Known Allergies Allergy (Verified 08/10/23 11:27) Medication List - Last Reconciled 08/10/23 by John Garcia PA-C clotrimazole-betamethasone 1-0.05 % 1 appl topical BID 2 weeks folic acid 1 mg PO DAILY furosemide (Lasix) 40 mg (2 x 20 mg) PO DAILY 15 days multivitamin 1 tab PO DAILY 90 days potassium chloride ER (Klor-Con M) 40 mEq (2 x 20 mEq) PO DAILY 30 days spironolactone 150 mg (1.5 x 100 mg) PO DAILY 90 days thiamine HCl (vitamin B1) 100 mg PO DAILY 90 days Tobacco use date assessed: 06/16/23 Dental Screening Dental Screen Date: 08/10/23 Did you have a dental visit in the last 12 months?: Yes Did you have a dental problem in the last 6 months where you did not have access to dental care?: No Was dental information given to patient?: Patient has dentist HPI 3 week f/u low potassium HPI Details Patient is a 42-year-old male here today for a follow-up visit.. 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 Has followed up with Gastroenterology . We have increased his spironolactone to 150 mg. Of note most recent labs showing low potassium. He does admit over the holidays drinking alcohol again. Of note bilirubin up at 14. Hypokalemia: Most recent potassium at 2.7, he has changed his potassium supplementation to 40 mEq once a day.\ [facility] Surgical History History of esophagogastroduodenoscopy (EGD) No pertinent past surgical history Family History Mother No problems noted. Father No problems noted. 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 Carlos Bell, Irene Parisi, Norm Osorio and colleagues, with an educational marco antonio from [employer]. Review of Systems Const Denies headache(s) Eyes Denies loss of vision ENT Denies vertigo, Denies dizziness, Denies headache(s) and Denies sore throat Card Denies chest pain, Denies leg edema and Denies lightheadedness Resp Denies cough, Denies hemoptysis and Denies wheezing GI Denies abdominal pain, Denies melena, Denies constipation, Denies diarrhea and Denies vomiting Denies dysuria, Denies urinary frequency and Denies urinary urgency Musc Denies arthralgias, Denies joint swelling, Denies numbness and Denies tingling Neuro Denies Abnormal speech present, Denies behavioral changes, Denies vertigo, Denies dizziness, Denies headache(s), Denies loss of vision, Denies memory loss, Denies numbness and Denies tingling Psych Denies anxiety, Denies behavioral changes, Denies depression, Denies memory loss and Denies panic attacks Chris/Lymph Denies easy bleeding and Denies easy bruising Aller/Immun Denies wheezing Physical exam (Primary Care) Vital Signs: Last Vital Signs Pulse 70 08/10/23 11:21 BP 110/62 08/10/23 11:21 Pulse Ox 99 08/10/23 11:21 Oxygen Delivery Method Room Air 08/10/23 11:21 BMI result Body Mass Index 25.4 Tobacco/Smoking Status: Tobacco use Status Tobacco use date assessed 06/16/23 08/10/23 11:14 Patient Tobacco Use Status Former Tobacco user 08/10/23 11:14 e-Cigarette/Vaping Use Never Used 08/10/23 11:14 Thrive Assessment: Date of Thrive Assessment Date Thrive assessed 06/16/23 08/10/23 11:14 Const General: healthy appearing, no acute distress, alert and awake Nutritional Appearance: well nourished Orientation/consciousness: oriented to person, oriented to place and oriented to time HENMT Ears: TM's normal bilaterally General nose exam: Normal nasal mucous membranes and turbinates present Eyes Conjunctivae: conjunctivae normal Sclerae: sclerae normal Pupils: Equal, round and reactive pupils present Neck Neck: Yes no lymphadenopathy and Yes no JVD Thyroid: Thyroid normal Carotids: no bruits Resp Effort & Inspection: normal respiratory effort and not tachypneic Auscultation: no crackles, no rales, no rhonchi and no wheezes Cardio Rate: regular rate Rhythm: regular rhythm Heart sounds: no murmurs and normal S1 and S2 GI Palpation (GI): Soft to palpation, nontender, no hepatomegaly and no splenomegaly Auscultation: normal bowel sounds Skin General skin exam: no rashes or lesions noted and dry skin Neuro General: oriented to person, oriented to place and oriented to time Cranial nerves: Yes Equal, round and reactive pupils present Speech: No Abnormal speech present Gait exam (Neuro): Normal gait present Motor exam (neuro): no tremor noted Extrem Right upper extremity: full ROM Left upper extremity: full ROM Right lower extremity: full ROM; no edema Left lower extremity: full ROM; no edema Psych Mental Status: mental status grossly normal Speech and movement: Normal speech and movement present Affect: normal affect Attitude: cooperative Thought process: Normal thought process present Assessment and Plan Assessment & Plan (1) Alcoholic cirrhosis of liver: Code(s): K70.30 - Alcoholic cirrhosis of liver without ascites Qualifiers: Ascites presence: without ascites Qualified Code(s): K70.30 - Alcoholic cirrhosis of liver without ascites Plan: Most recent bilirubin up at 14. He does report drinking alcohol over though holidays since the early June 2023. Advised him to get repeat labs as soon as possible. He does report he is going to be traveling to [place] over the next 10 days and will do labs when he comes back. (2) Hypokalemia: Code(s): E87.6 - Hypokalemia Plan: Has been taking potassium supplementation 20 mEq b.i.d.. At times forgets to take his afternoon dose.. He was told by GI to start taking 40 mEq once a day in the morning. 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, right hand, with tophus (tophi) Plan: Does have tophi presentation on his fingers Medications: Changed From furosemide (Lasix) 40 mg (2 x 20 mg) PO DAILY 15 days 30 tabs 1RF R18.8 - Other ascites To furosemide (Lasix) 40 mg (2 x 20 mg) PO DAILY 30 days 60 tabs 3RF R18.8 - Other ascites Refilled spironolactone 150 mg (1.5 x 100 mg) PO DAILY 90 days 135 tabs 1RF K70.30 - Alcoholic cirrhosis of liver without ascites Coding Level of Care Code Est Pt Level 4 (26121) Diagnoses Alcoholic cirrhosis of liver without ascites K70.30 Ascites presence: without ascites Hypokalemia E87.6 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
[2023-08-10 11:21] VITALS: BP 110/62; PULSE 70; O2SAT 99; BMI 25.4
== END 2023-08-10 11:41 | disposition home or self-care (01) ==
PROVIDERS: PCP Physician Assistant; Visit Provider Physician Assistant
DX: E87.6 Hypokalemia (principal); K70.30 Alcoholic cirrhosis of liver without ascites; M1A.0411 Idiopathic chronic gout, right hand, with tophus (tophi)
CPT/HCPCS: 99214